=== PATIENT | female | born 1935 | race Caucasian/White ===

== ENCOUNTER → 2017-12-16 12:53 | Outpatient (CLI) | payer MEDICARE, BC, SELFPAY | PROVIDERS: Family Provider Family Medicine; PCP Family Medicine; Visit Provider Surgery Vascular Surgery | DX: I65.23 Occlusion and stenosis of bilateral carotid arteries (principal); I63.9 Cerebral infarction, unspecified | CPT/HCPCS: 93880 ==

== ENCOUNTER 2018-07-04 06:03 | Observation (INO) | payer MEDICARE, BC, SELFPAY ==
[2018-07-04] VITALS (19 sets, daily range): BP systolic 118–223; BP diastolic 68–136; PULSE 58–91; RESP 16–19; TEMP 35.6–37.4; O2SAT 93–100; BMI 23.8; BMI 22.8
--- NOTE | 2018-07-04 06:32 | ED.DCSUM_ITS ---
- ER Visit Summary Date of Service: 07/04/18 Chief Complaint: Abdominal pain History of Present Illness: The patient is a 82 F with history of stroke and atrial flutter who presents for 3 hours of right lower quadrant abdominal pain. The pain started shortly after patient woke up. She states it is severe and in the right lower abdomen. She had associated nausea. She has had one week of urinary frequency. She denies any fever, chest pain, shortness of breath, diarrhea, constipation or other complaints. She has a history of hysterectomy and has had one ovary removed, but she does not know which one. She does have her appendix. She is on aspirin but no anticoagulants. Physical Examination: Vital signs: afebrile, hypertensive, no hypoxia on room air General: well nourished, well developed, appears uncomfortable Skin: warm, moist, no rash, no pallor HEENT: normocephalic and atraumatic; PERRL, EOMI, moist mucous membranes Cardiovascular: irregular rhythm, regular rate with soft systolic murmurs, no peripheral edema, 2+ pulses all distal extremities Respiratory: No increased work of breathing, lungs are clear to auscultation bilaterally, no rales, rhonchi or wheezing Abdominal: Abdomen is soft, tender in the right mid and lower abdomen with hypoactive bowel sounds, no guarding or rebound, no masses MSK: Moves all extremities, no deformities, normal strength Neuro: Awake and alert, oriented ?4. No facial droop, sensation and motor function intact and symmetric Test Results: Abnormal Lab Results 07/04/18 07/04/18 07/04/18 06:15 06:15 06:36 WBC 8.2 RBC 5.68 H Hgb 17.0 H Hct 52.1 H MCV 91.7 MCH 29.9 MCHC 32.6 RDW 14.1 RDW Differential 46.9 H Plt Count 113 L MPV 13.0 H Immature Gran % (Auto) 0.200 Neut % (Auto) 47.4 Lymph % (Auto) 39.9 [place] % (Auto) 7.0 Eos % (Auto) 4.9 Baso % (Auto) 0.6 Absolute Neuts (auto) 3.9 Absolute Lymphs (auto) 3.26 Total Counted Not Reportable Sodium 141 Potassium 4.1 Chloride 106 Carbon Dioxide 26.0 Anion Gap 9 BUN 24 H Creatinine 1.47 H Estim Creat Clear Calc 25.92 Est GFR (MDRD) Af Amer 44 L Est GFR (MDRD) Non-Af 36 L BUN/Creatinine Ratio 16.3 Glucose 171 H Lactic Acid Calcium 9.3 Total Bilirubin 0.70 AST 39 H ALT 33 Alkaline Phosphatase 95 Total Protein 8.0 Albumin 3.7 Globulin 4.3 H Albumin/Globulin Ratio 0.9 Lipase 171 Urine Color Yellow Urine Clarity Clear Urine pH 7.0 Ur Specific [place] 1.015 Urine Protein 15 H Urine Glucose (UA) 100 H Urine Ketones 5 H Urine Occult Blood 10 H Urine Nitrite Negative Urine Bilirubin Negative Urine Urobilinogen Normal Ur Leukocyte Esterase 25 H Urine RBC 0 SEEN Urine WBC 0-5 SEEN Ur Squamous Epith Cells 0-5 SEEN Urine Bacteria 0 SEEN Urine Mucus 0 SEEN 07/04/18 06:45 WBC RBC Hgb Hct MCV MCH MCHC RDW RDW Differential Plt Count MPV Immature Gran % (Auto) Neut % (Auto) Lymph % (Auto) [place] % (Auto) Eos % (Auto) Baso % (Auto) Absolute Neuts (auto) Absolute Lymphs (auto) Total Counted Sodium Potassium Chloride Carbon Dioxide Anion Gap BUN Creatinine Estim Creat Clear Calc Est GFR (MDRD) Af Amer Est GFR (MDRD) Non-Af BUN/Creatinine Ratio Glucose Lactic Acid 2.1 H Calcium Total Bilirubin AST ALT Alkaline Phosphatase Total Protein Albumin Globulin Albumin/Globulin Ratio Lipase Urine Color Urine Clarity Urine pH Ur Specific [place] Urine Protein Urine Glucose (UA) Urine Ketones Urine Occult Blood Urine Nitrite Urine Bilirubin Urine Urobilinogen Ur Leukocyte Esterase Urine RBC Urine WBC Ur Squamous Epith Cells Urine Bacteria Urine Mucus Clinical Impression(s) from Imaging Studies Abdomen/Pelvis CT 07/04/18 06:26 IMPRESSION: There is a 5 mm stone in the distal RIGHT ureter causing mild RIGHT hydronephrosis and hydroureter. There is a 2 mm stone lower pole the LEFT kidney without hydronephrosis. There is cholelithiasis. There is been a hysterectomy. There are infiltrates at the RIGHT lung base. Electronically Signed: Poncho Jose MD at 7:12 EDT , Service support , Medications Given Sodium Chloride () 1,000 mls @ 250 mls/hr IV .Q4H VENITA Last Admin: 07/04/18 06:43 Dose: 250 mls/hr Azithromycin 500 mg/ Dextrose 255 mls @ 250 mls/hr IV X1 ONE Stop: 07/04/18 08:42 Ceftriaxone Sodium (Rocephin) 1 gm in 50 mls @ 100 mls/hr IV X1 ONE Stop: 07/04/18 08:10 Discontinued Medications Labetalol HCl (Trandate) 10 mg IV X1 ONE Stop: 07/04/18 07:42 Morphine Sulfate () 4 mg IV X1 ONE Stop: 07/04/18 06:26 Last Admin: 07/04/18 06:43 Dose: 4 mg Ondansetron HCl (Zofran) 4 mg IV X1 ONE Stop: 07/04/18 06:26 Last Admin: 07/04/18 06:43 Dose: 4 mg Emergency Department Course and Treatment: Patient was given IV fluids, Zofran and morphine for symptomatic relief. Labs were performed and CT of the flank to evaluate for possible kidney stone or other intra-abdominal pathology. Labs showed no leukocytosis. Creatinine was 1.47, which is changed from patient's baseline from 2 years ago. Urine was negative for infection. CT the abdomen and pelvis without contrast showed a 5 mm distal ureteral stone with mild hydronephrosis and hydroureter. A right lower lobe infiltrate was also noted. Patient was asked about any cough, shortness of breath or other symptoms that would be consistent with pneumonia, and she stated that she has felt a gurgling in her chest for the last few days. Patient was hypertensive upon arrival, and after having adequate pain control, she continued to be significantly hypertensive. After 3 significantly elevated blood pressures, patient was given a s small mall dose of IV labetalol. Patient has a history of stroke over one year ago with associated significant hypertension, and one year ago she went cold turkey off of all of her medications including antihypertensives because she was tired of taking medicine. Given the patient has multiple medical issues at this time and lives at home alone, she will be discussed with the hospitalist for admission for observation status for further management of her ureteral colic, uncontrolled hypertension, and right lower lobe pneumonia. Patient was started on Rocephin and azithromycin for community-acquired pneumonia coverage. Treatment Plan: [] Disposition: [] Impression: right 5mm ureteral colic, RLL pneumonia, uncontrolled hypertension This note was generated with Dragon dictation software. It may contain incorrect words, spelling, and punctuation that were not noted in review of the chart prior to signing ED Disposition - Plan for ED Patient: Chief Complaint: Abd Pain Referrals: Larry Cooper MD [Primary Care Provider] -
[2018-07-04 06:38] LABS: Absolute Lymphocyte Count 3.26 X10^3/ul (0.83-4.51); Absolute Neutrophil Count 3.9 X10^3/uL (2.0-7.7); Basophil# 0.05 X10^3/uL; Basophil% 0.6 % (0-1); Eosinophils% 4.9 % (0-5); Hematocrit 52.1 % (37-47); Lymphocyte # 3.26 X10^3/ul (4.0); Lymphocyte % 39.9 % (19-41); Mean Corp Hgb Conc 32.6 g/gl (32-36); Mean Corpuscular Hgb 29.9 pg (27.0-32.0); Mean Corpuscular Volume 91.7 fL (81-99); Monocyte# 0.57 X10^3/uL; Neutrophil # 3.88 X10^3/uL (2.7-7.7); Neutrophil % 47.4 % (47-70); Platelet Count 113 K/mm3 (150-450); RBC Distribution Width CV 14.1 % (11.6-14.6); RBC Distribution Width SD 46.9 fl (35.1-43.9); Red Blood Count 5.68 M/mm3 (4.2-5.4); White Blood Count 8.2 K/mm3 (4.4-11.0)
[2018-07-04 06:39] LABS: POSITIVE COUNT NO; POSITIVE DIFFERENTIAL NO; POSITIVE MORPHOLOGY NO
[2018-07-04 06:39] LABS: Bacteria 0 SEEN /hpf (None Seen); Mucous, Urine 0 SEEN /hpf (<or=2+); Red Blood Cells-Urine 0 SEEN /hpf (0-5)
[2018-07-04] MEDS: Ondansetron 4 MG/2 ML Vial IV (06:43)
[2018-07-04] MEDS: Morphine 4 MG/ML Syringe IV (06:43)
[2018-07-04] MEDS: 0.9% Normal Saline 1,000 ML 250 ML IV (06:43)
[2018-07-04 06:44] LABS: Color, Urine Yellow (Yellow); Glucose, Dipstick 100 mg/dl (Normal); Ketone-Dipstick 5 mg/dl (Negative); Leukocyte Esterase-Dipstick 25 /ul (Negative); Nitrite-Dipstick Negative (Negative); Occult Blood-Urine 10 /ul (Negative); Protein-Dipstick 15 mg/dl (Negative); Specific Gravity, Urine 1.015 (1.002-1.030); Urine Bilirubin Dipstick Negative (Negative); Urine Clarity Clear (Clear); Urine Urobilinogen Normal (Normal)
[2018-07-04 06:48] LABS: ALB/GLOB Ratio 0.9 RATIO (0.9-2.4); AST(SGOT) 39 U/L (15-37); Alanine Aminotransfer ALT/SGPT 33 U/L (13-56); Albumin, Serum 3.7 g/dL (3.2-5.0); Alkaline Phosphatase 95 U/L (45-117); Anion Gap 9 (5-15); BUN 24 mg/dL (7-18); BUN/Creat Ratio 16.3 RATIO (10-20); Calcium,Total 9.3 mg/dL (8.5-10.1); Chloride 106 mmol/L (98-107); Creatinine, Serum 1.47 mg/dL (0.55-1.02); EST Glomerular Filtration Rate 36 mL/min (>60); Est Glom Filt Rate - Afr Amer 44 mL/min (>60); Estimated Creatinine Clearance 25.92 ml/min; Globulin 4.3 g/dL (2.2-4.2); Glucose 171 mg/dL (74-106); Lipase 171 U/L (73-393); Potassium 4.1 mmol/L (3.5-5.1); Sodium Level 141 mmol/L (136-145)
[2018-07-04 06:54] LABS: Squamous Epithelial Cells - UA 0-5 SEEN /hpf (5-10); White Blood Cells 0-5 SEEN /hpf (0-5)
[2018-07-04 07:18] LABS: Lactic Acid 2.1 mmol/L (0.4-2.0)
--- NOTE | 2018-07-04 07:19 | ED.RN ---
PER LAB LACTIC ACID 2.1, DR GANDHI AWARE.
--- NOTE | 2018-07-04 07:50 | PCM.HP.STD ---
Problem List (1) Pneumonia Status: Acute (2) Renal colic on right side Status: Acute (3) Kidney stone on right side Status: Acute (4) Atrial flutter Status: Acute Qualifiers: Atrial flutter type: typical Qualified Code(s): I48.3 - Typical atrial flutter (5) Carotid stenosis Status: Chronic Qualifiers: Laterality: right Qualified Code(s): I65.21 - Occlusion and stenosis of right carotid artery (6) Hypertension, accelerated Status: Chronic (7) Stroke/cerebrovascular accident Status: Chronic Qualifiers: CVA mechanism: unspecified Qualified Code(s): I63.9 - Cerebral infarction, unspecified History of Present Illness Date of Admission: 07/04/18 Chief Complaint: Right flank pain The patient is a 82 year old F with past medical history significant for hypertension, previous history of CVA with no residual effect who presented with right flank pain. Patient symptoms started in the middle of the night. Pain was described as colicky radiating to her groin. She also did complain of some shortness of breath associated with nonproductive cough as well as intermittent fever and chills. Imaging studies obtained in the ED demonstrated There is a 5 mm stone in the distal RIGHT ureter causing mild RIGHT hydronephrosis and hydroureter. She was also found to have infiltrate involving the right base of the lung. She was medicated with pain meds antibiotics initiated per protocol and admitted to a monitored bed. She was also found to have a markedly elevated systolic blood pressure > 200. Past Medical History Past Medical History (Chronic Problems): Chronic Problems Hypertension, accelerated (Chronic) Carotid stenosis (Chronic) Stroke/cerebrovascular accident (Chronic) Allergies No Known Allergies Allergy (Verified 07/04/18 06:07) Home Medications: Ambulatory Orders Medication Instructions Recorded Aspirin 81 mg PO DAILY 07/04/18 Surgical History: hysterectomy Psychiatric History: No pertinent psych hx SCALER PACKER History: No pertinent SCALER PACKER history Smoking Status: Never smoker - *Family History Maternal History Items: - - No stroke Paternal History Items: - - No stroke Review of Systems Constitutional: Reports: Chills, Fever HEENT: Denies: Head Aches, Sinus Congestion, Sinus Drainage Respiratory: Reports: Cough Gastrointestinal: Reports: Abdominal Pain Genitourinary: Denies: Dysuria, Frequency, Hematuria, Urgency Musculoskeletal: Denies: Joint Pain, Joint Tenderness Skin: Denies: Rash Neurological: Denies: Focal weakness, Numbness, Tingling Psychiatric: Denies: Homicidal Ideations, Suicidal Ideations Hematologic/ Lymphatic: Denies: Easy Bruising, Easy Bleeding VTE Information - Inpt Only VTE Present on Admission: No VTE Mechan Device Prophylaxis: Knee High GREGG Hose VTE Pharm Prophylaxis ordered?: Yes Patient Problems: Active and Suspected Problems Pneumonia (Acute) Renal colic on right side (Acute) Kidney stone on right side (Acute) Objective: GENERAL: in some discomfort HEENT: Clear conjunctiva, NECK; supple, normal thyroid, CHEST: Diminished to auscultation bilaterally, HEART: Regular S1 S2, no audible murmurs ABDOMEN: soft, non-tender, normoactive bowel sounds, RECTAL: deferred EXTREMITIES: No edema, no clubbing, no cyanosis. 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 SKIN: No Rash - Physical Exam Vital Signs Temp Pulse Resp BP Pulse Ox 96.0 F L 58 L 17 209/94 H 96 07/04/18 06:04 07/04/18 07:03 07/04/18 07:03 07/04/18 07:03 07/04/18 07:03 Oxygen Delivery Method Room Air Weight: 62.9 kg Body Mass Index (BMI) 23.8 Finger Stick Blood Glucose 192 Laboratory Tests Past 24 Hrs 07/04/18 07/04/18 07/04/18 06:15 06:15 06:36 WBC 8.2 RBC 5.68 H Hgb 17.0 H Hct 52.1 H MCV 91.7 MCH 29.9 MCHC 32.6 RDW 14.1 RDW Differential 46.9 H Plt Count 113 L MPV 13.0 H Immature Gran % (Auto) 0.200 Neut % (Auto) 47.4 Lymph % (Auto) 39.9 [place] % (Auto) 7.0 Eos % (Auto) 4.9 Baso % (Auto) 0.6 Absolute Neuts (auto) 3.9 Absolute Lymphs (auto) 3.26 Total Counted Not Reportable Sodium 141 Potassium 4.1 Chloride 106 Carbon Dioxide 26.0 Anion Gap 9 BUN 24 H Creatinine 1.47 H Estim Creat Clear Calc 25.92 Est GFR (MDRD) Af Amer 44 L Est GFR (MDRD) Non-Af 36 L BUN/Creatinine Ratio 16.3 Glucose 171 H Lactic Acid Calcium 9.3 Total Bilirubin 0.70 AST 39 H ALT 33 Alkaline Phosphatase 95 Total Protein 8.0 Albumin 3.7 Globulin 4.3 H Albumin/Globulin Ratio 0.9 Lipase 171 Urine Color Yellow Urine Clarity Clear Urine pH 7.0 Ur Specific [place] 1.015 Urine Protein 15 H Urine Glucose (UA) 100 H Urine Ketones 5 H Urine Occult Blood 10 H Urine Nitrite Negative Urine Bilirubin Negative Urine Urobilinogen Normal Ur Leukocyte Esterase 25 H Urine RBC 0 SEEN Urine WBC 0-5 SEEN Ur Squamous Epith Cells 0-5 SEEN Urine Bacteria 0 SEEN Urine Mucus 0 SEEN 07/04/18 06:45 WBC RBC Hgb Hct MCV MCH MCHC RDW RDW Differential Plt Count MPV Immature Gran % (Auto) Neut % (Auto) Lymph % (Auto) [place] % (Auto) Eos % (Auto) Baso % (Auto) Absolute Neuts (auto) Absolute Lymphs (auto) Total Counted Sodium Potassium Chloride Carbon Dioxide Anion Gap BUN Creatinine Estim Creat Clear Calc Est GFR (MDRD) Af Amer Est GFR (MDRD) Non-Af BUN/Creatinine Ratio Glucose Lactic Acid 2.1 H Calcium Total Bilirubin AST ALT Alkaline Phosphatase Total Protein Albumin Globulin Albumin/Globulin Ratio Lipase Urine Color Urine Clarity Urine pH Ur Specific [place] Urine Protein Urine Glucose (UA) Urine Ketones Urine Occult Blood Urine Nitrite Urine Bilirubin Urine Urobilinogen Ur Leukocyte Esterase Urine RBC Urine WBC Ur Squamous Epith Cells Urine Bacteria Urine Mucus Assessment/Plan All Active Problems Pneumonia (Acute) Renal colic on right side (Acute) Kidney stone on right side (Acute) Atrial flutter (Acute) Patient is an 82-year-old lady presented with flank pain found to have kidney stones in addition to pneumonia 1. Right flank pain secondary to a 5 mm stone in the distal RIGHT ureter causing mild RIGHT hydronephrosis and hydroureter.. Patient has been admitted to a monitored bed for symptomatic management as well as consultation placed to urology 2. Pneumonia: Suspected to be secondary to streptococci pneumonia. Blood and sputum cultures sent. Patient placed on Rocephin and Zithromax. Also placed on oxygen titrated to keep also is greater than 92 2. Acute hypertensive crisis. Patient systolic blood pressure greater than 200 on admission initiated amlodipine scheduled 10 mg daily in addition to as needed hydralazine 4. Previous history of CVA a year prior to admission with no residual effect 5. Cholelithiasis asymptomatic 6. DVT prophylaxis SC Lovenox Advance planning did discuss patient's CODE STATUS with her ; did discuss the various modalities patient wishes to remain full code at this point. Time spent on discussion 17 minutes Code Visit Inpatient E&M: 61041 Subs Hosp L3 Procedures: 31246 Advncd Care Plan 30 Min
[2018-07-04] MEDS: Ceftriaxone 1 GM/50 ML BAG IV (08:30)
[2018-07-04] MEDS: 0.9% Normal Saline 1,000 ML 150 ML IV ×3 (10:21→21:45)
[2018-07-04] MEDS: 0.9% NaCl Peripheral Flush Adult/Peds IV (10:22)
[2018-07-04] MEDS: amLODIPine 10 MG Tablet PO (10:25)
[2018-07-04 10:50] LABS: Reflex Lactate? Y
[2018-07-04 12:07] LABS: Lactic Acid 2.5 mmol/L (0.4-2.0)
--- NOTE | 2018-07-04 12:21 | PCM.CONS.U ---
Reason for Consult Date of Consultation: 07/04/18 Reason for Consultation: Obstructing stone in the distal right ureter History of Present Illness: The patient is a 82 year old female who presented to the hospital with severe pain in the right side, she has a stone in the distal right ureter causing pain and obstruction and hydronephrosis. Taken the patient today to surgery to extract the stone Past Medical History Past Medical History (Chronic Problems): Chronic Problems Hypertension, accelerated (Chronic) Carotid stenosis (Chronic) Stroke/cerebrovascular accident (Chronic) Allergies adhesive Adverse Reaction (Verified 07/04/18 08:59) Rash Home Medications: Ambulatory Orders Medication Instructions Recorded Aspirin 81 mg PO DAILY 07/04/18 Surgical History: hysterectomy Psychiatric History: No pertinent psych hx ACUTE SPECIALIST History: No pertinent ACUTE SPECIALIST history Smoking Status: Never smoker - *Family History Maternal History Items: - - No stroke Paternal History Items: - - No stroke Review of Systems Constitutional: Denies: Chills, Fever, Weight Change HEENT: Denies: Head Aches, Sinus Congestion, Sinus Drainage Cardiovascular: Denies: Chest Pain, Palpitations Respiratory: Denies: Cough, Shortness of breath at rest, Sputum production Gastrointestinal: Reports: Abdominal Pain. Denies: Nausea, Vomiting Genitourinary: Denies: Dysuria Musculoskeletal: Denies: Joint Pain, Joint Tenderness Skin: Denies: Rash, Wounds Neurological: Denies: Numbness, Tingling, Focal weakness Psychiatric: Denies: Anxiety, Depression, Homicidal Ideations, Suicidal Ideations Hematologic/ Lymphatic: Denies: Easy Bruising, Easy Bleeding Physical Exam - Physical Exam Vital Signs Temp 97.5 F L 07/04/18 08:55 Pulse 73 07/04/18 11:25 Resp 17 07/04/18 08:55 BP 160/116 H 07/04/18 11:25 Pulse Ox 96 07/04/18 08:55 Intake & Output 07/02/18 07/03/18 07/04/18 23:59 23:59 23:59 Weight: 60.3 kg General: Alert, Oriented x3 HEENT: Atraumatic Oral: Moist Mucosa Neck: Supple Cardiovascular: Regular rate Abdomen: Soft Rectal: Exam deferred Extremities: No clubbing, No cyanosis, No edema Skin: No rashes Musculoskeletal: No Tenderness to Palpation of Joints or Extremities Lymphatic: No Cervical, Supraclavicular, or Inguinal Adenopathy Laboratory Tests Past 24 Hrs 07/04/18 11:24 Lactic Acid 2.5 H Assessment/Plan All Active Problems Pneumonia (Acute) Renal colic on right side (Acute) Kidney stone on right side (Acute) Atrial flutter (Acute) 82-year-old female who presented to the hospital with obstructing stone. N.p.o. today for surgery plan for ureteroscopy extraction of stone no stent.
--- NOTE | 2018-07-04 12:23 | PCM.OPRPT ---
Report of Operation Date of Procedure: 07/04/18 Pre-Operative Diagnosis: Right ureteral calculi causing obstruction and pain Post-Operative Diagnosis: The same Surgery/Procedure Performed:: Cystoscopy, right ureteroscopy, balloon dilation of the right ureter, basket extraction of stone. No stent Description of Surgical Findings:: 82-year-old female was taken back to the operating room after smooth induction of anesthesia she was placed supine on the table in dorsal lithotomy position, the urethra and vaginal area were prepped and draped in usual sterile fashion, I went into the bladder with a 21 [place] rigid cystourethroscope, the entire length the urethra is normal, the bladder was normal, no tumors or stones seen within the bladder, left to right ureteral orifice normal position trigone normal, I then cannulated the right ureteral orifice with a wire could feel the stone at the wire then advanced a wire all the way to the right kidney, then over the wire I used a 12 [place] 10 cm balloon dilator and balloon dilated the distal ureter for about 2 minutes. I then left the wire in place and next the wire went in with a SlimLine rigid ureteroscope was able to get into the distal ureter quite easily I then encountered the stone I used a tipless Sugiura basket basketed the stone and gently pulled out the ureter and out the bladder. The stone was then handed off to the nurse, the wire was removed patient's bladder was emptied and she is taken back to PACU in good condition. Type of Anesthesia:: General Drains: none - Admit VTE Documentation VTE Present on Admission: No VTE Mechan Device Prophylaxis: SCD's VTE Pharm Prophylaxis ordered?: No Reason prophylaxis not ordered:: Treatment Not Indicated
[2018-07-04] MEDS: Enoxaparin 30 MG/0.3 ML Syringe SC (13:35)
[2018-07-04] MEDS: guaiFENesin 1,200 MG Tablet 1200 MG PO ×2 (13:35→21:45)
[2018-07-04] MEDS: Famotidine 20 MG Tablet PO (13:35)
[2018-07-04] MEDS: Aspirin 81 MG TAB.CHEW PO (13:36)
--- NOTE | 2018-07-04 16:01 | CASEMGMT ---
This RN MADISON to room with WU form at this time, explanation done and pt voices understanding. Pt signed form at this time. Pt voices no further questions/concerns/needs at this time. Original to chart and copy to pt. Trevor MIXON CM
[2018-07-04 19:31] LABS: Color, Urine Red (Yellow); Glucose, Dipstick 100 mg/dl (Normal); Ketone-Dipstick 5 mg/dl (Negative); Leukocyte Esterase-Dipstick 100 /ul (Negative); Nitrite-Dipstick Negative (Negative); Occult Blood-Urine 250 /ul (Negative); Protein-Dipstick 100 mg/dl (Negative); Urine Bilirubin Dipstick Negative (Negative); Urine Clarity Turbid (Clear); Urine Urobilinogen Normal (Normal); Urine pH 6.5 (5.0 - 8.0)
[2018-07-04] MEDS: MELATONIN 3 MG TABLET PO (21:45)
[2018-07-04] MEDS: Morphine 2 MG/ML Syringe IV (21:50)
[2018-07-05 02:30] VITALS: BP 143/90; PULSE 83; RESP 16; TEMP 36.6; O2SAT 96
[2018-07-05 03:23] VITALS: PULSE 84
[2018-07-05] MEDS: 0.9% Normal Saline 1,000 ML 150 ML IV (04:10)
[2018-07-05 05:33] LABS: Hematocrit 48.8 % (37-47); Hemoglobin 15.9 g/dl (12.0-15.0); Mean Corp Hgb Conc 32.6 g/gl (32-36); Mean Corpuscular Hgb 30.4 pg (27.0-32.0); Mean Corpuscular Volume 93.3 fL (81-99); Mean Platelet Vol. 12.2 fl (6.2-12.0); Platelet Count 127 K/mm3 (150-450); RBC Distribution Width CV 14.5 % (11.6-14.6); RBC Distribution Width SD 49.1 fl (35.1-43.9); Red Blood Count 5.23 M/mm3 (4.2-5.4); White Blood Count 12.1 K/mm3 (4.4-11.0)
[2018-07-05 05:41] LABS: Scan Indicated on CBC? Y/N NO
[2018-07-05 05:51] LABS: Anion Gap 12 (5-15); BUN 20 mg/dL (7-18); BUN/Creat Ratio 14.9 RATIO (10-20); Calcium,Total 8.8 mg/dL (8.5-10.1); Chloride 106 mmol/L (98-107); Creatinine, Serum 1.34 mg/dL (0.55-1.02); EST Glomerular Filtration Rate 40 mL/min (>60); Est Glom Filt Rate - Afr Amer 49 mL/min (>60); Estimated Creatinine Clearance 28.43 ml/min; Glucose 128 mg/dL (74-106); Magnesium 1.9 mg/dL (1.6-2.6); Potassium 4.8 mmol/L (3.5-5.1); Sodium Level 139 mmol/L (136-145)
[2018-07-05 06:24] VITALS: BP 183/101; PULSE 73; RESP 16; TEMP 36.8; O2SAT 94
[2018-07-05 07:08] VITALS: PULSE 72
[2018-07-05 08:52] VITALS: BP 143/64; PULSE 79; RESP 18; TEMP 36.9; O2SAT 99
--- NOTE | 2018-07-05 10:42 | PCM.DC ---
- Discharge Diagnoses Current Active Problems: Current Active and Chronic Problems Pneumonia (Acute) Renal colic on right side (Acute) Kidney stone on right side (Acute) You will use the following diet at home:: No restrictions Allergies/Adverse Reactions: Allergies adhesive Adverse Reaction (Verified 07/04/18 08:59) Rash Medications to take at Discharge Aspirin 81 mg PO DAILY 07/04/18 Amlodipine [Norvasc] 10 mg PO DAILY #60 tab 07/05/18 Azithromycin [Zithromax] 500 mg PO DAILY #3 tab 07/05/18 Cefdinir 300 mg PO BID #10 cap 07/05/18 The following prescriptions were given: Amlodipine [Norvasc] 10 mg PO DAILY #60 tab Azithromycin [Zithromax] 500 mg PO DAILY #3 tab Cefdinir 300 mg PO BID #10 cap Primary Care Physician: Larry Cooper MD [Primary Care Provider] - Please follow up with your Primary Care Physician in: in 5-7 days Test Results: Test results from this visit will be discussed in further detail at your follow-up appointment, if applicable. Please Follow Up With: Oleg Rivera MD When: in 1-2 weeks Proposed Discharge Date: 07/05/18
[2018-07-05] MEDS: guaiFENesin 1,200 MG Tablet 1200 MG PO (11:01)
[2018-07-05] MEDS: Famotidine 20 MG Tablet PO (11:02)
[2018-07-05] MEDS: Aspirin 81 MG TAB.CHEW PO (11:02)
[2018-07-05] MEDS: amLODIPine 10 MG Tablet PO (11:02)
--- NOTE | 2018-07-05 12:19 | PCM.DC.SUM ---
Discharge Date and Diagnosis - Problem List Patient Problems: Active and Suspected Problems Pneumonia (Acute) Renal colic on right side (Acute) Kidney stone on right side (Acute) Date of Admission: 07/04/18 Date of Discharge: 07/05/18 - Primary Discharge Diagnosis Active and Suspected Problems Pneumonia (Acute) Renal colic on right side (Acute) Kidney stone on right side (Acute) - Secondary Discharge Diagnosis Chronic Problems Hypertension, accelerated (Chronic) Carotid stenosis (Chronic) Stroke/cerebrovascular accident (Chronic) Hospital Course and Treatment Imaging Results: Clinical Impression(s) from Imaging Studies Abdomen/Pelvis CT 07/04/18 06:26 IMPRESSION: There is a 5 mm stone in the distal RIGHT ureter causing mild RIGHT hydronephrosis and hydroureter. There is a 2 mm stone lower pole the LEFT kidney without hydronephrosis. There is cholelithiasis. There is been a hysterectomy. There are infiltrates at the RIGHT lung base. Electronically Signed: Poncho Jose MD at 7:12 EDT , Service support , Operations: None Summary of Care Provided: Patient is an 82-year-old lady presented with flank pain found to have kidney stones in addition to pneumonia 1. Right flank pain secondary to a 5 mm stone in the distal RIGHT ureter causing mild RIGHT hydronephrosis and hydroureter.. Patient has been admitted to a monitored bed for symptomatic management as well as consultation placed to urology. Patient was seen by Dr. Rivera who did perform Cystoscopy, right ureteroscopy, balloon dilation of the right ureter, basket extraction of stone; No stent on 07/04/2018 2. Pneumonia: Suspected to be secondary to streptococci pneumonia. Blood and sputum cultures sent. Patient placed on Rocephin and Zithromax. Also placed on oxygen titrated to keep also is greater than 92 she was discharged home on Felix as well as cefdinir 2. Acute hypertensive crisis. Patient systolic blood pressure greater than 200 on admission initiated amlodipine scheduled 10 mg daily in addition to as needed hydralazine prescription was written for amlodipine on discharge 4. Previous history of CVA a year prior to admission with no residual effect patient is on aspirin did continue 5. Cholelithiasis asymptomatic 6. DVT prophylaxis SC Lovenox Discharge Diet: No Restrictions Home Medications: Medications to take at Discharge Aspirin 81 mg PO DAILY 07/04/18 Amlodipine [Norvasc] 10 mg PO DAILY #60 tab 07/05/18 Azithromycin [Zithromax] 500 mg PO DAILY #3 tab 07/05/18 Cefdinir 300 mg PO BID #10 cap 07/05/18 Following Prescrptions Were Given to Patient: Amlodipine [Norvasc] 10 mg PO DAILY #60 tab Azithromycin [Zithromax] 500 mg PO DAILY #3 tab Cefdinir 300 mg PO BID #10 cap Primary Care Physician: Larry Cooper MD [Primary Care Provider] - Please follow up with your Primary Care Physician in: in 5-7 days Please Follow Up With: Oleg Rivera MD When: in 1-2 weeks Disposition: Home Minutes spent on discharge:: 35 Patient Condition:: Stable Medical Necessity - Tobacco Use Smoking Status: Never smoker Meaningful Use Info Meaningful Use Diagnoses (Choose all that apply): None applicable Code Visit Inpatient E&M: 45942 Disch Hosp
[2018-07-05 13:00] VITALS: BP 124/93
--- NOTE | 2018-07-05 13:00 | CALC_PTH ---
PATIENT: VENTURA FARIA LOC: [facility] U#:[id number] AGE/SX: 82/F ROOM: [facility] RE07/04/[address]: Dr. Miguelangel Dean MD : [id number] BED: 1 DIS: 07/05/2018 SPEC #: [id number] RECD: 07/05/18 13:52 STATUS: KRISTI REQ #: [id number] TALHA: 07/05/18 13:[address]: Oleg Rivera DEPT: SURGICAL PATHOLOGY RECD BY: Bobo España ENTERED: 07/05/18 13:53 SP TYPE: Calculi OTHR DR: MD Dr. Oleg Quiñonez MD Dr. Mark Elderbrock, MD Tissues: CALCULI Procedures: Surgery Specimen Level I Comments: @ Ordering doctor for CODY edited from to @ by RGOOD at 07/06/18 0759 @ Submitting doctor edited from to @ by RGOOD at 07/06/18 0759 HEADER OPERATION: Cysto, ureteroscopy, balloon dilation right ureter, basket extraction PRE-OP DIAGNOSIS: Right flank pain, right ureteral calculus TISSUE SUBMITTED: Right ureteral calculus GROSS DIAGNOSIS Right ureteral calculus, removal: Unremarkable calculus (gross diagnosis only). AM:milady 07/06/18 COMMENT If chemical analysis is requested on this specimen, please notify the laboratory. GROSS DESCRIPTION Received in fixative is one container labeled with the patient's name and designated right ureteral calculus. The specimen consists of a single irregular dark agustin calculus measuring 0.4 x 0.3 x 0.2 cm. The calculus is submitted in its entirety for chemical stone analysis. / AM:milady 07/05/18 CPT: 16673
== END 2018-07-05 10:43 | disposition home or self-care (01) ==
LOC: ED 07:17 → PCU 08:55
PROVIDERS: Urology; Admitting Provider Internal Medicine; Emergency Provider Emergency Medicine; Family Provider Family Medicine; PCP Family Medicine; Visit Provider Internal Medicine
PROC: 0TJ98ZZ Inspection of Ureter, Via Natural or Artificial Opening Endoscopic (ICD-10-PCS; CPT 52352; principal; 2018-07-04 12:50)
DX: N13.2 Hydronephrosis with renal and ureteral calculous obstruction (principal); I10 Essential (primary) hypertension; Z79.82 Long term (current) use of aspirin; I48.92 Unspecified atrial flutter; Z86.73 Personal history of transient ischemic attack (TIA), and cerebral infarction without residual deficits; I16.9 Hypertensive crisis, unspecified; J18.9 Pneumonia, unspecified organism; K80.20 Calculus of gallbladder without cholecystitis without obstruction; I48.2 Chronic atrial fibrillation
CPT/HCPCS: 00918; 52320; 36415; 74176; 80048; 80053; 81001; 81002; 83605; 83690; 83735; 85025; 85027; 87040; 87449; 88300; 93005; 96361; 96365; 96367; 96372; 96375; 96376; 97802; 99218; 99283; J7030; A4216; C1769; G0378; J2405

== ENCOUNTER 2018-07-06 07:13 | Emergency (ER) | payer MEDICARE, BC, SELFPAY ==
[2018-07-06 07:14] VITALS: BP 157/123; PULSE 78; RESP 20; TEMP 37.2; O2SAT 96; BMI 22.3
[2018-07-06] MEDS: 0.9% Normal Saline 1,000 ML 150 ML IV (07:57)
[2018-07-06 07:59] LABS: Absolute Lymphocyte Count 1.28 X10^3/ul (0.83-4.51); Absolute Neutrophil Count 9.2 X10^3/uL (2.0-7.7); Basophil# 0.03 X10^3/uL; Basophil% 0.3 % (0-1); Eosinophil# 0.04 X10^3/uL; Eosinophils% 0.3 % (0-5); Hematocrit 46.4 % (37-47); Hemoglobin 15.4 g/dl (12.0-15.0); Lymphocyte # 1.28 X10^3/ul (4.0); Lymphocyte % 11.2 % (19-41); Mean Corp Hgb Conc 33.2 g/gl (32-36); Mean Corpuscular Hgb 30.6 pg (27.0-32.0); Mean Corpuscular Volume 92.1 fL (81-99); Monocyte# 0.91 X10^3/uL; Neutrophil # 9.17 X10^3/uL (2.7-7.7); Neutrophil % 80.1 % (47-70); Platelet Count 127 K/mm3 (150-450); RBC Distribution Width CV 14.2 % (11.6-14.6); RBC Distribution Width SD 47.9 fl (35.1-43.9); Red Blood Count 5.04 M/mm3 (4.2-5.4); White Blood Count 11.4 K/mm3 (4.4-11.0)
[2018-07-06 08:01] LABS: POSITIVE COUNT NO; POSITIVE DIFFERENTIAL NO; POSITIVE MORPHOLOGY NO
[2018-07-06 08:03] LABS: Color, Urine Yellow (Yellow); Glucose, Dipstick 100 mg/dl (Normal); Ketone-Dipstick Negative (Negative); Leukocyte Esterase-Dipstick 25 /ul (Negative); Nitrite-Dipstick Negative (Negative); Occult Blood-Urine 250 /ul (Negative); Protein-Dipstick 30 mg/dl (Negative); Specific Gravity, Urine 1.015 (1.002-1.030); Urine Bilirubin Dipstick Negative (Negative); Urine Clarity Sl. Cloudy (Clear); Urine Urobilinogen Normal (Normal)
[2018-07-06 08:11] LABS: Red Blood Cells-Urine > 100 SEEN /hpf (0-5); White Blood Cells 0-5 SEEN /hpf (0-5)
[2018-07-06 08:12] LABS: Bacteria RARE /hpf (None Seen); Mucous, Urine 1+ /hpf (<or=2+); Squamous Epithelial Cells - UA 0-5 SEEN /hpf (5-10)
[2018-07-06 08:13] LABS: Anion Gap 12 (5-15); BUN 23 mg/dL (7-18); BUN/Creat Ratio 18.5 RATIO (10-20); Calcium,Total 9.1 mg/dL (8.5-10.1); Chloride 103 mmol/L (98-107); Creatinine, Serum 1.24 mg/dL (0.55-1.02); EST Glomerular Filtration Rate 44 mL/min (>60); Est Glom Filt Rate - Afr Amer 53 mL/min (>60); Estimated Creatinine Clearance 30.73 ml/min; Glucose 116 mg/dL (74-106); Potassium 3.4 mmol/L (3.5-5.1); Sodium Level 141 mmol/L (136-145)
--- NOTE | 2018-07-06 08:57 | ED.VISSUMM ---
- ER Visit Summary Date of Service: 07/06/18 Chief Complaint: [Possible allergic reaction] History of Present Illness: The patient is a 82 F [presents the emergency department with complaint of pain in her right flank. Patient states that she was recently admitted to the hospital for a right-sided kidney stone and pneumonia. Patient was discharged home yesterday. Patient states she woke up around 4:45 AM with severe pain in her right lower abdomen and back that was worse than when she first was diagnosed with kidney stone. Patient subsequently felt nauseated and had some dry heaves. Patient became diaphoretic and sweaty. Patient states that she then took her morning medications including Ceftin near and Zithromax as well as Norvasc. Patient continued to have a lot of discomfort and cramping and thought that may be the medications were making her feel bad. Patient denies any fevers. On arrival the emergency department her pain is much improved and rates it a 4 5 out of 10. Patient describes it is just mild cramping.] Physical Examination: [HEENT-PERRLA, EOMI. Cranial nerves II through XII grossly intact. TMs clear. Mucous membranes moist. No adenopathy. Cardiovascular-regular rate and rhythm without murmur or ectopy Lungs-clear to auscultation, chest wall stable without crepitus or subcu emphysema Abdomen-normoactive bowel sounds, soft. Patient does have some tenderness over the right lower quadrant with some guarding. There is no rebound, rigidity, or perineal signs. Patient does have some CVA tenderness on the right. Extremities-intact ?4, normal range of motion, normal pulses, atraumatic] Test Results: [CBC with differential obtained showing 11.4, hemoglobin 15, hematocrit 46, platelets 127. Chemistries unremarkable. Urinalysis was positive for greater than 100 RBCs only 25 leukoesterase 0-[address] of the flank showed a right hydro-nephrosis and hydroureter without evidence of previously seen 5 mm stone.] Emergency Department Course and Treatment: [Patient did not want any pain medications in the department. I did discuss case with Dr. Rivera will follow patient up in the office. At this point I do not feel patient's had any type of allergic reaction and I suspect patient had a reaction to the pain that she was having possibly a vasovagal type reaction.] Treatment Plan: [Discharged home with follow-up with urology] Disposition: [Discharged in stable condition] Impression: [Right flank pain status post recently passed kidney stone and instrumentation] This note was generated with [employer] dictation software. It may contain incorrect words, spelling, and punctuation that were not noted in review of the chart prior to signing ED Disposition - Plan for ED Patient: Chief Complaint: Allergic Reaction Referrals: Larry Cooper MD [Primary Care Provider] -
--- NOTE | 2018-07-06 09:04 | ED.DEP ---
ED Disposition - Plan for ED Patient: Chief Complaint: Allergic Reaction Instructions: ED Stone Renal Passed Referrals: Larry Cooper MD [Primary Care Provider] - Oleg Rievra MD [STAFF PHYSICIAN] - 3-5 Days
[2018-07-06 09:08] VITALS: BP 118/62; PULSE 57; RESP 16; O2SAT 98
== END 2018-07-06 09:09 | disposition home or self-care (01) ==
PROVIDERS: Emergency Provider Emergency Medicine; Family Provider Family Medicine; PCP Family Medicine
DX: R10.9 Unspecified abdominal pain (principal); N13.30 Unspecified hydronephrosis; I10 Essential (primary) hypertension; Z86.73 Personal history of transient ischemic attack (TIA), and cerebral infarction without residual deficits; Z87.442 Personal history of urinary calculi
CPT/HCPCS: 74176; 80048; 81001; 85025; 96360; 96361; 99284; J7030; A4216

== ENCOUNTER 2018-07-13 18:54 | Inpatient (IN) | payer MEDICARE, BC, SELFPAY ==
[2018-07-13] VITALS (7 sets, daily range): BP systolic 145–168; BP diastolic 79–101; PULSE 53–103; RESP 16–20; TEMP 36.6–36.9; O2SAT 91–100; BMI 20.5; BMI 22.1
--- NOTE | 2018-07-13 20:24 | EKG12_ITS ---
Test Reason : STROKE Blood Pressure : / mmHG Vent. Rate : 095 BPM Atrial Rate : 110 BPM P-R Int : 000 ms QRS Dur : 098 ms QT Int : 360 ms P-R-T Axes : 000 004 001 degrees QTc Int : 452 ms Atrial fibrillation Septal infarct , age undetermined Abnormal ECG Confirmed by INDIRA ROWE ([id number]), publishing editor MARCE GABRIEL ([id number] on 07/19/2018 1:39:49 PM Referred By: YAMILEX Confirmed By:INDIRA ROWE
--- NOTE | 2018-07-13 20:31 | ED.VISSUMM ---
- ER Visit Summary Date of Service: 07/13/18 Chief Complaint: Weakness History of Present Illness: The patient is a 82 F presents with neighbors for a weakness and fall ?2 today. Patient states she fell at noon today with no injuries. States there is no weakness on either side. States she fell again at 5 PM. Neighbors checked on her around 630, helped her up noted weakness on the left arm and leg. Patient denies any speech changes. She had a stroke a year ago. She is on baby aspirin. There is no deficits from that stroke. Denies any injury from the fall. Patient states she is hospitalized little over week ago was placed on amlodipine and would have tremors and weakness after taking this medications around 2 hours. Saw her PCP on follow-up is told to take it for a few more days. States she has been feeling like this since. She is admitted for pneumonia and kidney stone. Records reviewed, no she hasa flutter history. Physical Examination: General: Alert and oriented ?3, no acute distress HEENT: Normocephalic, atraumatic. Moist mucosa membranes. Slight lip droop on the left. Neck: supple, nontender. Cardiovascular: Regular rate and irregular rhythm, no murmurs Respiratory: Normal breath sounds, symmetric, no distress Abdomen: Soft, nontender, nondistended Extremities: Nontender, no edema, pulses intact ?4 Neuro: NIH is a 5 for left lip droop, left arm weakness dropping to the bed, left leg paresthesia. Test Results: EKG: Atrial fibrillation rate of 95. No ST or T-wave changes. CT head: Discussed radiology negative for any acute process. Labs were stable. Chest x-ray negative. Emergency Department Course and Treatment: Unclear on onset of time with patient reporting no weakness at the initial time of noon, she did have a deficit of 5 on NIH, I did activate the stroke team. However during discussion with patient risk of head bleeds secondary NINDS trial were discussed, she was alert and oriented 3, she states she did not want the risks. She states her risk is higher. She understands possibility of permanent deficit. Workup is negative. We NIH was still a 5. Granddaughter was present along with the neighbors who understood this. When I discussed CODE STATUS, patient still is a full code stating if multiple doctors agreed needing CPR and intubation she would like this. When discussion with her atrial fibrillation no anticoagulation medicines, she states a year ago had A. fib was placed on medication that was too expensive costing $400 a month. I discussed with her there is the possibility of warfarin with his generic medications, states this is a possibility. I did speak with on-call neurologist, Dr. Joya, discussed patient's wishes, she was admitted to PCU for further management. Spoke with hospitalist Dr. Prabhakar who will admit to PCU. Treatment Plan: [] Disposition: Admission Impression: 1. Acute CVA This note was generated with [employer]ab dictation software. It may contain incorrect words, spelling, and punctuation that were not noted in review of the chart prior to signing ED Disposition - Plan for ED Patient: Disposition: Acute Care [facility] Chief Complaint: Fall Diagnosis: Acute CVA (cerebrovascular accident) Referrals: Larry Cooper MD [Primary Care Provider] -
[2018-07-13 20:36] LABS: Bedside Glucose 113 mg/dL (70-110)
[2018-07-13 20:45] LABS: Prothrombin Time (Protime)PT. 13.3 SECONDS (11.7-14.9)
[2018-07-13 20:46] LABS: Absolute Lymphocyte Count 1.58 X10^3/ul (0.83-4.51); Absolute Neutrophil Count 7.3 X10^3/uL (2.0-7.7); Basophil# 0.04 X10^3/uL; Basophil% 0.4 % (0-1); Hematocrit 48.4 % (37-47); Hemoglobin 17.3 g/dl (12.0-15.0); Lymphocyte # 1.58 X10^3/ul (4.0); Lymphocyte % 15.5 % (19-41); Mean Corp Hgb Conc 35.7 g/gl (32-36); Mean Corpuscular Hgb 31.4 pg (27.0-32.0); Mean Corpuscular Volume 87.8 fL (81-99); Mean Platelet Vol. 13.1 fl (6.2-12.0); Monocyte# 1.11 X10^3/uL; Monocyte% 10.9 % (0-10); Neutrophil # 7.31 X10^3/uL (2.7-7.7); Neutrophil % 71.9 % (47-70); Partial Thromboplast Time 29.4 Seconds (24.1-36.2); Platelet Count 195 K/mm3 (150-450); RBC Distribution Width SD 42.3 fl (35.1-43.9); Red Blood Count 5.51 M/mm3 (4.2-5.4); White Blood Count 10.2 K/mm3 (4.4-11.0)
[2018-07-13 20:57] LABS: Anion Gap 11 (5-15); BUN 19 mg/dL (7-18); BUN/Creat Ratio 17.8 RATIO (10-20); Calcium,Total 9.6 mg/dL (8.5-10.1); Chloride 104 mmol/L (98-107); Creatinine, Serum 1.07 mg/dL (0.55-1.02); EST Glomerular Filtration Rate 52 mL/min (>60); Est Glom Filt Rate - Afr Amer 63 mL/min (>60); Estimated Creatinine Clearance 35.43 ml/min; Glucose 132 mg/dL (74-106); Potassium 3.8 mmol/L (3.5-5.1); Sodium Level 138 mmol/L (136-145)
[2018-07-13 21:05] LABS: POSITIVE COUNT NO; POSITIVE DIFFERENTIAL NO; POSITIVE MORPHOLOGY NO
--- NOTE | 2018-07-13 21:30 | PCM.HP.STD ---
Problem List (1) Hypertension Status: Chronic (2) Acute CVA (cerebrovascular accident) Status: Acute (3) Atrial flutter Status: Acute Qualifiers: Atrial flutter type: typical Qualified Code(s): I48.3 - Typical atrial flutter (4) Renal colic on right side Status: Resolved (5) Kidney stone on right side Status: Resolved History of Present Illness Date of Admission: 07/13/18 Chief Complaint: stroke-like symptoms x 1 day The patient is a 82 year old F with a significant history of sarcoidosis; A. fib, hypertension and previous stroke who presents with strokelike symptoms that started a few hours before her admission. Reportedly on the day of admission patient fell at about 12 noon; and about 5 PM. Each time she found it difficult to get up but she eventually got up. She attributes her falling to her legs giving up. She had another fall after 5:00pm. With this last fall, she was in a chair and the whole chair and herself rolled over. A neighbor checked on her and found that patient was having left-sided weakness. As stated above she had a previous CVA about 2 years that affected her speech but eventually it resolved without any deficits although she reported that she has persistent sore throat from the previous CVA. She was on Eliquis but she reported that she stopped taking Eliquis because of cost and ecchymosis. She reports that she has tried three different oral anticoagulants. She is not on any anticoagulants at this time. She takes a baby aspirin every day. She took her baby aspirin on the day of admission. She was recently started on amlodipine for hypertension and she reports dizziness; tremors and weakness with amlodipine. She even attributes her strokelike symptoms to amlodipine. She was admitted at our our about a week ago for a pneumonia and a kidney stone. She had a successful lithotripsy with passing of stones. And she has completed her antibiotics for pneumonia. 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 Alcohol: None - *Family History Maternal History Items: - - No stroke Paternal History Items: - - No stroke Review of Systems Constitutional: Denies: Chills, Fever, Weight Change Eyes: Denies: Blurred vision, Pain HEENT: Denies: Head Aches, Sinus Congestion, Sinus Drainage Cardiovascular: Denies: Chest Pain, Palpitations Respiratory: Denies: Cough, Shortness of breath at rest, Sputum production Gastrointestinal: Denies: Abdominal Pain, Nausea, Vomiting Genitourinary: Denies: Dysuria Musculoskeletal: Denies: Joint Pain, Joint Tenderness Skin: Denies: Rash, Wounds Neurological: Reports: Focal weakness - Left arm and left leg.. Denies: Slurred speech, Numbness, Tingling Psychiatric: Denies: Anxiety, Depression, Homicidal Ideations, Suicidal Ideations Hematologic/ Lymphatic: Denies: Easy Bruising, Easy Bleeding VTE Information - Inpt Only VTE Present on Admission: No VTE Mechan Device Prophylaxis: None VTE Pharm Prophylaxis ordered?: Yes Patient Problems: Active and Suspected Problems Acute CVA (cerebrovascular accident) (Acute) - Physical Exam General: Alert, Oriented x3, Cooperative HEENT: Atraumatic, PERRLA, EOMI, Normocephalic Neck: Supple, No JVD, Negative Carotid Bruits Lungs: Clear to auscultation, Normal air movement Cardiovascular: Normal S1, Normal S2, Irregular Rate Abdomen: Bowel Sounds Present, Soft, Non Tender Extremities: No edema, Capillary Refill Less than 3 Seconds Skin: No rashes, No breakdown Musculoskeletal: No Tenderness to Palpation of Joints or Extremities Neurological: - - Patient cannot shrug her left shoulder; unable to raise her left arm; she can squeeze fingers with the left arm. Unable to do meeqhy-[id number] test of left arm. She has full range of motion in left leg; but strength in left leg is 3/5. Right side is unremarkable. Reflexes are not hyperactive. She has left facial droop. Psych/Mental Status: Normal Affect, Appropriate Vital Signs Temp Pulse Resp BP Pulse Ox 97.8 F 90 16 145/80 H 98 07/13/18 18:55 07/13/18 20:57 07/13/18 20:57 07/13/18 20:57 07/13/18 20:57 Oxygen Flow Rate (L/min) 2 Oxygen Delivery Method Nasal Cannula Weight: 54.431 kg Body Mass Index (BMI) 20.5 Finger Stick Blood Glucose 113 Laboratory Tests Past 24 Hrs 07/13/18 07/13/18 07/13/18 19:47 19:47 19:47 WBC 10.2 RBC 5.51 H Hgb 17.3 H Hct 48.4 H MCV 87.8 MCH 31.4 MCHC 35.7 RDW 13.0 RDW Differential 42.3 Plt Count 195 MPV 13.1 H Immature Gran % (Auto) 0.300 Neut % (Auto) 71.9 H Lymph % (Auto) 15.5 L [place] % (Auto) 10.9 H Eos % (Auto) 1.0 Baso % (Auto) 0.4 Absolute Neuts (auto) 7.3 Absolute Lymphs (auto) 1.58 Total Counted Not Reportable PT 13.3 INR 1.0 APTT 29.4 Sodium 138 Potassium 3.8 Chloride 104 Carbon Dioxide 23.0 Anion Gap 11 BUN 19 H Creatinine 1.07 H Estim Creat Clear Calc 35.43 Est GFR (MDRD) Af Amer 63 Est GFR (MDRD) Non-Af 52 L BUN/Creatinine Ratio 17.8 Glucose 132 H Calcium 9.6 Troponin I < 0.015 POC Glucose 07/13/18 20:27 POC Glucose 113 H Assessment/Plan All Active Problems Pneumonia (Resolved) Renal colic on right side (Resolved) Kidney stone on right side (Resolved) Acute CVA (cerebrovascular accident) (Acute) Atrial flutter (Acute) Patient is a 82 year old F with a significant history of A. fib, hypertension and previous stroke who presents with strokelike symptoms that started a few hours before her admission. Probable CVA ED doctor reported that patient refused a TPA after risk and benefits were discussed. Head CT with no acute pathology. MRI/MRA of head and neck per stroke protocol ordered. Patient stated that she is claustrophobic. Ativan on route to MRI. Fasting lipids ordered. Hemoglobin A1c ordered Patient was not hypoglycemic on admission -Check TTE -Permissive HTN for 24 hrs, assisted goal BP < 130/80 mmHg . Home amlodipine held at this time. Aspirin 325 given. Daily aspirin High intensity statin ST/PT/OT to evaluate and treat Neurology consult Hypertension Not at goal at the time of admission. But this could be due to her stroke. Patient reports symptoms with amlodipine. When patient is stable consider discussing blood pressure management with patient. Atrial fibrillation Controlled at this time. Ventricular rate is between higher 90s-100s. Consider rate control when appropriate. DVT prophylaxis with heparin. Code Visit Inpatient E&M: [id number] Init Hosp L3
--- NOTE | 2018-07-13 22:01 | NURSING ---
Called ED hotel breakfast attendant, Eric at this time to confirm Pt okay to come to PCU.
[2018-07-14] VITALS (11 sets, daily range): BP systolic 137–144; BP diastolic 69–89; PULSE 73–94; RESP 16–18; TEMP 36.4–37.2; O2SAT 95–98; BMI 22.1
[2018-07-14] MEDS: Atorvastatin Calcium 40 MG Tablet PO (00:01)
[2018-07-14] MEDS: Aspirin 325 MG Tablet PO (00:02)
[2018-07-14 06:09] LABS: Anion Gap 10 (5-15); BUN 17 mg/dL (7-18); BUN/Creat Ratio 18.7 RATIO (10-20); Calcium,Total 8.9 mg/dL (8.5-10.1); Chloride 104 mmol/L (98-107); Cholesterol 193 mg/dL (200); Creatinine, Serum 0.91 mg/dL (0.55-1.02); EST Glomerular Filtration Rate 63 mL/min (>60); Est Glom Filt Rate - Afr Amer 76 mL/min (>60); Estimated Creatinine Clearance 41.87 ml/min; Glucose 88 mg/dL (74-106); High Density Lipoprotein 65 mg/dL; Potassium 3.3 mmol/L (3.5-5.1); Sodium Level 142 mmol/L (136-145); Triglycerides 75 mg/dL; Very Low Density Lipoprotein 15 mg/dL (5-40)
--- NOTE | 2018-07-14 07:24 | PCM.CONS.GEN ---
Reason for Consult Date of Consultation: 07/14/18 History of Present Illness: The patient is a 82 year old F who reports she was recovering from a kidney stone, apparently fell but doesnt remember falling, and had trouble getting up/. they think i had a stroke because i couldnt get up off the floor. feels normal now except for muscle pain in her neck. pt doesnt know reason for falls. denies left sided weakness. maybe my left leg is a little weak but better today. reports cva 1 1/2 yrs ago, no residual. reports couldnt afford noac, but willing to consider coumadin. per admit h&p:The patient is a 82 year old F with a significant history of sarcoidosis; A. fib, hypertension and previous stroke who presents with strokelike symptoms that started a few hours before her admission. Reportedly on the day of admission patient fell at about 12 noon; and about 5 PM. Each time she found it difficult to get up but she eventually got up. She attributes her falling to her legs giving up. She had another fall after 5:00pm. With this last fall, she was in a chair and the whole chair and herself rolled over. A neighbor checked on her and found that patient was having left-sided weakness. As stated above she had a previous CVA about 2 years that affected her speech but eventually it resolved without any deficits although she reported that she has persistent sore throat from the previous CVA. She was on Eliquis but she reported that she stopped taking Eliquis because of cost and ecchymosis. She reports that she has tried three different oral anticoagulants. She is not on any anticoagulants at this time. She takes a baby aspirin every day. She took her baby aspirin on the day of admission. She was recently started on amlodipine for hypertension and she reports dizziness; tremors and weakness with amlodipine. She even attributes her strokelike symptoms to amlodipine. She was admitted at our our about a week ago for a pneumonia and a kidney stone. She had a successful lithotripsy with passing of stones. And she has completed her antibiotics for pneumonia. 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 Tobacco Use: Non-smoker Alcohol: None - *Family History Maternal History Items: - - No stroke Paternal History Items: - - No stroke Review of Systems Constitutional: Denies: Chills, Fever, Weight Change HEENT: Denies: Head Aches, Sinus Congestion, Sinus Drainage Cardiovascular: Denies: Chest Pain, Palpitations Respiratory: Denies: Cough, Shortness of breath at rest, Sputum production Gastrointestinal: Denies: Abdominal Pain, Nausea, Vomiting Genitourinary: Denies: Dysuria Musculoskeletal: Denies: Joint Pain, Joint Tenderness Neurological: Reports: Focal weakness Psychiatric: Denies: Anxiety, Depression, Homicidal Ideations, Suicidal Ideations Hematologic/ Lymphatic: Denies: Easy Bruising, Easy Bleeding Patient Problems: Active and Suspected Problems Acute CVA (cerebrovascular accident) (Acute) - Physical Exam General: Alert, Oriented x3, Cooperative, No apparent distress Neurological: Sensory exam intact to light touch and pain, - - left arm flaccid mild left hemianopsia Vital Signs Temp Pulse Resp BP Pulse Ox 36.4 C L 94 18 144/82 H 98 07/14/18 06:45 07/14/18 06:45 07/14/18 06:45 07/14/18 06:45 07/14/18 06:45 Oxygen Flow Rate (L/min) 2 Oxygen Delivery Method Room Air Weight: 58.4 kg Body Mass Index (BMI) 22.1 Intake and Output for Last 24 Hours 07/12/18 07/13/18 07/14/18 23:59 23:59 23:59 Intake Total 100 / 100 Balance 100 / 100 Laboratory Tests Past 24 Hrs 07/13/18 07/14/18 07/14/18 23:04 05:02 05:02 Sodium 142 Potassium 3.3 L Chloride 104 Carbon Dioxide 28.0 Anion Gap 10 BUN 17 Creatinine 0.91 Estim Creat Clear Calc 41.87 Est GFR (MDRD) Af Amer 76 Est GFR (MDRD) Non-Af 63 BUN/Creatinine Ratio 18.7 Glucose 88 Hemoglobin A1c Pending Calcium 8.9 Troponin I < 0.015 Triglycerides 75 Cholesterol 193 LDL Cholesterol 113 VLDL Cholesterol 15 HDL Cholesterol 65 Current Medications Generic Name Dose Route Start Last Admin Trade Name Siomara PRN Reason Stop Dose Admin Aspirin 81 mg 07/14/18 08:00 Aspirin, Baby PO DAILY@0800 [facility] Atorvastatin Calcium 40 mg 07/13/18 23:00 07/14/18 00:01 Lipitor PO 40 mg QHS VENITA Administration Heparin Sodium (Porcine) 5,000 unit 07/14/18 10:00 Heparin Na SC Q12 [facility] Labetalol HCl 10 mg 07/13/18 22:26 Trandate IV 07/15/18 05:00 Q10M PRN BP > 220/120 Magnesium Hydroxide 30 ml 07/13/18 22:26 Milk Of Magnesia PO DAILY PRN Constipation Nutritional Formula (Lactose Free) 120 ml 07/14/18 10:00 Ensure Enlive PO 4X/DAY [facility] Ondansetron HCl 4 mg 07/13/18 22:26 Zofran IV Q8H PRN PRN NAUSEA Sodium Chloride 5 - 30 ml 07/13/18 22:45 IV UD PRN SALINE FLUSH ct reviewed, chronic subcort wm disease Laboratory Results - last 24 hr 07/13/18 07/13/18 07/13/18 19:47 19:47 19:47 WBC 10.2 RBC 5.51 H Hgb 17.3 H Hct 48.4 H MCV 87.8 MCH 31.4 MCHC 35.7 RDW 13.0 RDW Differential 42.3 Plt Count 195 MPV 13.1 H Immature Gran % (Auto) 0.300 Neut % (Auto) 71.9 H Lymph % (Auto) 15.5 L [place] % (Auto) 10.9 H Eos % (Auto) 1.0 Baso % (Auto) 0.4 Absolute Neuts (auto) 7.3 Absolute Lymphs (auto) 1.58 Total Counted Not Reportable PT 13.3 INR 1.0 APTT 29.4 Sodium 138 Potassium 3.8 Chloride 104 Carbon Dioxide 23.0 Anion Gap 11 BUN 19 H Creatinine 1.07 H Estim Creat Clear Calc 35.43 Est GFR (MDRD) Af Amer 63 Est GFR (MDRD) Non-Af 52 L BUN/Creatinine Ratio 17.8 Glucose 132 H Calcium 9.6 Troponin I < 0.015 Triglycerides Cholesterol LDL Cholesterol VLDL Cholesterol HDL Cholesterol POC Glucose 07/13/18 07/13/18 07/14/18 20:27 23:04 05:02 WBC RBC Hgb Hct MCV MCH MCHC RDW RDW Differential Plt Count MPV Immature Gran % (Auto) Neut % (Auto) Lymph % (Auto) [place] % (Auto) Eos % (Auto) Baso % (Auto) Absolute Neuts (auto) Absolute Lymphs (auto) Total Counted PT INR APTT Sodium 142 Potassium 3.3 L Chloride 104 Carbon Dioxide 28.0 Anion Gap 10 BUN 17 Creatinine 0.91 Estim Creat Clear Calc 41.87 Est GFR (MDRD) Af Amer 76 Est GFR (MDRD) Non-Af 63 BUN/Creatinine Ratio 18.7 Glucose 88 Calcium 8.9 Troponin I < 0.015 Triglycerides 75 Cholesterol 193 LDL Cholesterol 113 VLDL Cholesterol 15 HDL Cholesterol 65 POC Glucose 113 H Assessment/Plan All Active Problems Pneumonia (Resolved) Renal colic on right side (Resolved) Kidney stone on right side (Resolved) Acute CVA (cerebrovascular accident) (Acute) Atrial flutter (Acute) left mca infarct, afib repeat ct, pt defers mri consider anticoag 5-7 days carotid us echo tele pt/ot/sp consider rehab
--- NOTE | 2018-07-14 07:27 | CON.PCM_ITS ---
Reason for Consult Date of Consultation: 07/14/18 History of Present Illness: The patient is a 82 year old F who reports she was recovering from a kidney stone, apparently fell but doesnt remember falling, and had trouble getting up/ . they think i had a stroke because i couldnt get up off the floor. feels normal now except for muscle pain in her neck. pt doesnt know reason for falls. denies left sided weakness. maybe my left leg is a little weak but better today . reports cva 1 1/2 yrs ago, no residual. reports couldnt afford noac, but willing to consider coumadin. per admit h&p:The patient is a 82 year old F with a significant history of sarcoidosis; A. fib, hypertension and previous stroke who presents with strokelike symptoms that started a few hours before her admission. Reportedly on the day of admission patient fell at about 12 noon; and about 5 PM. Each time she found it difficult to get up but she eventually got up. She attributes her falling to her legs giving up. She had another fall after 5: 00pm. With this last fall, she was in a chair and the whole chair and herself rolled over. A neighbor checked on her and found that patient was having left-sided weakness. As stated above she had a previous CVA about 2 years that affected her speech but eventually it resolved without any deficits although she reported that she has persistent sore throat from the previous CVA. She was on Eliquis but she reported that she stopped taking Eliquis because of cost and ecchymosis. She reports that she has tried three different oral anticoagulants. She is not on any anticoagulants at this time. She takes a baby aspirin every day. She took her baby aspirin on the day of admission. She was recently started on amlodipine for hypertension and she reports dizziness; tremors and weakness with amlodipine. She even attributes her strokelike symptoms to amlodipine. She was admitted at our our about a week ago for a pneumonia and a kidney stone. She had a successful lithotripsy with passing of stones. And she has completed her antibiotics for pneumonia. Past Medical History Past Medical History (Chronic Problems): Chronic Problems Hypertension (Chronic) Hypertension, accelerated (Chronic) Carotid stenosis (Chronic) Stroke/cerebrovascular accident (Chronic) Allergies adhesive Adverse Reaction (Verified 07/13/18 18:56) Rash Home Medications: Ambulatory Orders Medication Instructions Recorded Aspirin 81 mg PO DAILY 07/04/18 Amlodipine [Norvasc] 10 mg PO DAILY #60 tab 07/05/18 Surgical History: hysterectomy, tonsillectomy Psychiatric History: No pertinent psych hx ADULT HEALTH CLINICAL NURSE SPECIALIST History: No pertinent ADULT HEALTH CLINICAL NURSE SPECIALIST history Lives: Alone Smoking Status: Former smoker - Smoked for 1 month many years ago. Tobacco Use: Non-smoker Alcohol: None - *Family History Maternal History Items: - - No stroke Paternal History Items: - - No stroke Review of Systems Constitutional: Denies: Chills, Fever, Weight Change HEENT: Denies: Head Aches, Sinus Congestion, Sinus Drainage Cardiovascular: Denies: Chest Pain, Palpitations Respiratory: Denies: Cough, Shortness of breath at rest, Sputum production Gastrointestinal: Denies: Abdominal Pain, Nausea, Vomiting Genitourinary: Denies: Dysuria Musculoskeletal: Denies: Joint Pain, Joint Tenderness Neurological: Reports: Focal weakness Psychiatric: Denies: Anxiety, Depression, Homicidal Ideations, Suicidal Ideations Hematologic/ Lymphatic: Denies: Easy Bruising, Easy Bleeding Patient Problems: Active and Suspected Problems Acute CVA (cerebrovascular accident) (Acute) - Physical Exam General: Alert, Oriented x3, Cooperative, No apparent distress Neurological: Sensory exam intact to light touch and pain, - - left arm flaccid mild left hemianopsia Vital Signs Temp Pulse Resp BP Pulse Ox 36.4 C L 94 18 144/82 H 98 07/14/18 06:45 07/14/18 06:45 07/14/18 06:45 07/14/18 06:45 07/14/18 06:45 Oxygen Flow Rate (L/min) 2 Oxygen Delivery Method Room Air Weight: 58.4 kg Body Mass Index (BMI) 22.1 Intake and Output for Last 24 Hours 07/12/18 07/13/18 07/14/18 23:59 23:59 23:59 Intake Total 100 / 100 Balance 100 / 100 Laboratory Tests Past 24 Hrs 07/13/18 07/14/18 07/14/18 23:04 05:02 05:02 Sodium 142 Potassium 3.3 L Chloride 104 Carbon Dioxide 28.0 Anion Gap 10 BUN 17 Creatinine 0.91 Estim Creat Clear Calc 41.87 Est GFR (MDRD) Af Amer 76 Est GFR (MDRD) Non-Af 63 BUN/Creatinine Ratio 18.7 Glucose 88 Hemoglobin A1c Pending Calcium 8.9 Troponin I < 0.015 Triglycerides 75 Cholesterol 193 LDL Cholesterol 113 VLDL Cholesterol 15 HDL Cholesterol 65 Current Medications Generic Name Dose Route Start Last Admin Trade Name Siomara PRN Reason Stop Dose Admin Aspirin 81 mg 07/14/18 08:00 Aspirin, Baby PO DAILY@0800 [facility] Atorvastatin Calcium 40 mg 07/13/18 23:00 07/14/18 00:01 Lipitor PO 40 mg QHS VENITA Administration Heparin Sodium (Porcine) 5,000 unit 07/14/18 10:00 Heparin Na SC Q12 [facility] Labetalol HCl 10 mg 07/13/18 22:26 Trandate IV 07/15/18 05:00 Q10M PRN BP > 220/120 Magnesium Hydroxide 30 ml 07/13/18 22:26 Milk Of Magnesia PO DAILY PRN Constipation Nutritional Formula (Lactose Free) 120 ml 07/14/18 10:00 Ensure Enlive PO 4X/DAY [facility] Ondansetron HCl 4 mg 07/13/18 22:26 Zofran IV Q8H PRN PRN NAUSEA Sodium Chloride 5 - 30 ml 07/13/18 22:45 IV UD PRN SALINE FLUSH ct reviewed, chronic subcort wm disease Laboratory Results - last 24 hr 07/13/18 07/13/18 07/13/18 19:47 19:47 19:47 WBC 10.2 RBC 5.51 H Hgb 17.3 H Hct 48.4 H MCV 87.8 MCH 31.4 MCHC 35.7 RDW 13.0 RDW Differential 42.3 Plt Count 195 MPV 13.1 H Immature Gran % (Auto) 0.300 Neut % (Auto) 71.9 H Lymph % (Auto) 15.5 L Warren % (Auto) 10.9 H Eos % (Auto) 1.0 Baso % (Auto) 0.4 Absolute Neuts (auto) 7.3 Absolute Lymphs (auto) 1.58 Total Counted Not Reportable PT 13.3 INR 1.0 APTT 29.4 Sodium 138 Potassium 3.8 Chloride 104 Carbon Dioxide 23.0 Anion Gap 11 BUN 19 H Creatinine 1.07 H Estim Creat Clear Calc 35.43 Est GFR (MDRD) Af Amer 63 Est GFR (MDRD) Non-Af 52 L BUN/Creatinine Ratio 17.8 Glucose 132 H Calcium 9.6 Troponin I < 0.015 Triglycerides Cholesterol LDL Cholesterol VLDL Cholesterol HDL Cholesterol POC Glucose 07/13/18 07/13/18 07/14/18 20:27 23:04 05:02 WBC RBC Hgb Hct MCV MCH MCHC RDW RDW Differential Plt Count MPV Immature Gran % (Auto) Neut % (Auto) Lymph % (Auto) Warren % (Auto) Eos % (Auto) Baso % (Auto) Absolute Neuts (auto) Absolute Lymphs (auto) Total Counted PT INR APTT Sodium 142 Potassium 3.3 L Chloride 104 Carbon Dioxide 28.0 Anion Gap 10 BUN 17 Creatinine 0.91 Estim Creat Clear Calc 41.87 Est GFR (MDRD) Af Amer 76 Est GFR (MDRD) Non-Af 63 BUN/Creatinine Ratio 18.7 Glucose 88 Calcium 8.9 Troponin I < 0.015 Triglycerides 75 Cholesterol 193 LDL Cholesterol 113 VLDL Cholesterol 15 HDL Cholesterol 65 POC Glucose 113 H Assessment/Plan All Active Problems Pneumonia (Resolved) Renal colic on right side (Resolved) Kidney stone on right side (Resolved) Acute CVA (cerebrovascular accident) (Acute) Atrial flutter (Acute) left mca infarct, afib repeat ct, pt defers mri consider anticoag 5-7 days carotid us echo tele pt/ot/sp consider rehab
[2018-07-14 08:40] LABS: Hemoglobin A1c 5.7 % (4.2-6.3)
[2018-07-14] MEDS: Acetaminophen 325 MG Tablet PO ×2 (09:59→13:49)
[2018-07-14] MEDS: Aspirin 81 MG TAB.CHEW PO (09:59)
--- NOTE | 2018-07-14 11:55 | DCINST_ITS ---
- Discharge Diagnoses Current Active Problems: Current Active and Chronic Problems Acute CVA (cerebrovascular accident) (Acute) Hypertension (Chronic) You will use the following diet at home:: Calorie/Carbohydrate Controlled ( specify 1200, 1400, etc) - 1800, Cardiac Your food should be the consistency of: Regular Your liquids should be the consistency of: Regular/Thin Discharge Activity: Return to Normal Activity Additional Instructions: start warfarin in 1-2 weeks Allergies/Adverse Reactions: Allergies adhesive Adverse Reaction (Verified 07/13/18 18:56) Rash Medications to take at Discharge Aspirin 81 mg PO DAILY 07/04/18 Amlodipine [Norvasc] 10 mg PO DAILY #60 tab 07/05/18 Acetaminophen [Tylenol Tablet] 325 mg PO Q4H PRN PRN tablet 07/14/18 Aspirin [Aspirin, Baby] 81 mg PO DAILY@0800 tab.chew 07/14/18 Atorvastatin Calcium [Lipitor] 40 mg PO QHS tablet 07/14/18 Ensure Enlive 120 ml PO 4X/DAY liquid 07/14/18 Magnesium Hydroxide [Milk Of Magnesia] 30 ml PO DAILY PRN udc 07/14/18 Warfarin [Coumadin ([facility])] 5 mg PO DAILY #30 tablet 07/14/18 The following prescriptions were given: Warfarin [Coumadin ([facility])] 5 mg PO DAILY #30 tablet Primary Care Physician: Larry Cooper MD [Primary Care Provider] - Please follow up with your Primary Care Physician in: 2 weeks Test Results: Test results from this visit will be discussed in further detail at your follow- up appointment, if applicable. Please Follow Up With: Sky Joya MD When: as directed
--- NOTE | 2018-07-14 12:41 | CASEMGMT ---
ISABELLA spoke with Alisa in rehab and Dr Joya would accept patient in the rehab unit if she is willing. ISABELLA spoke with Remy BURNETT and patient is willing to go to the rehab unit. ISABELLA notified Alisa in the rehab unit. However, we are still waiting on therapy to see patient before she goes so we can make sure she can do 3 hours of therapy. Plan: [facility] 4th floor rehab as long as therapy feels she can do 3 hours of therapy. Brigid SALINAS MSW
--- NOTE | 2018-07-14 13:04 | CASEMGMT ---
Social Work: Met with patient in room as patient expressed interest in completing advance directives. Patient states that she will be moved to rehab today and would prefer to complete documents at a later time. This SW explained that a SW on the rehab unit would be able to assist with advance directive documents. Patient verbalizes understanding. Spoke to MARC Schwartz (rehab social media project manager). Margot aware that patient will be admitted to rehab today and is interested in competing advance directive documents while on rehab. DONNA Levine
--- NOTE | 2018-07-14 15:57 | PCM.DC.SUM ---
<Remy Gil - Last Filed: 07/14/18 15:57> Discharge Date and Diagnosis - Problem List Patient Problems: Active and Suspected Problems Acute CVA (cerebrovascular accident) (Acute) Date of Admission: 07/13/18 Date of Discharge: 07/14/18 - Primary Discharge Diagnosis Active and Suspected Problems Acute CVA (cerebrovascular accident) (Acute) Hx of CVA chronic Afib medication noncompliance Prediabetes HTN Carotid stenosis - Secondary Discharge Diagnosis Chronic Problems Hypertension (Chronic) Hypertension, accelerated (Chronic) Carotid stenosis (Chronic) Stroke/cerebrovascular accident (Chronic) Hospital Course and Treatment Imaging Results: CT/Brain/Head without Contrast IMPRESSION: Chronic involutional changes of the brain. CT/Brain/Head without Contrast IMPRESSION: Stable chronic ischemic and atrophic changes. No acute intracranial abnormality. RAD/Chest 1 View IMPRESSION: No acute thoracic pathology. Consults: Mahnaz - neuro Operations: None Procedures: 2-D Echocardiogram Summary of Care Provided: Physical exam on day of discharge: General: Resting comfortably NAD Psych: A/Ox3 normal affect HEENT: PEARRLA AT NC Neck: Supple NT CV: RRR no m/t/r/g/h Resp: CTA Abd: [id number] Soft NT no guarding or rigidity Ext: DP2+= no edema Skin: W/D normal turgor Lymph/Heme: No active bleeding or adenopathy Neuro: CN2-12 intact. Unable to raise left arm. Only able to wiggle his fingers slightly, able to move all 5 left digits. Sensation intact left hand. Mild left leg and foot weakness, sensation intact. Hospital course:. The patient is a 82 year old F with a history of CVA, chronic atrial fibrillation-patient took herself off of blood thinner, hypertension, history of carotid stenosis-patient of Dr. Pena, who presented to the emergency room with acute onset of left upper extremity weakness. She was brought to the ER and underwent a CT of the brain which was negative for acute process. She was admitted to the PCU for acute CVA with neurology on consult. She was placed on statin, aspirin. She was previously on eliquis for chronic afib and she had taken herself off of this because she was concerned about the side effects. She also has a history of severe carotid stenosis which she states she had previously discussed surgery for with Dr. Pena. She had a carotid ultrasound that did show severe right sided carotid stenosis. She underwent an echo cardiogram which results are pending. Repeat CT brain was negative. She refused MRI/MRA, CTA of the head and neck. She continued to have severe left sided weakness, could not raise her arm, could only slightly wiggle fingers. Her left leg and foot are both somewhat weak as well although not as significantly impacted as her arm. She was advised to and was agreeable to go to the rehab unit for at least one week. We also encouraged her to follow up with Dr. Pena concerning her carotid stenosis, and with her PCP. She will also need to start coumadin in 5-7 days when ok with neurology. She will need a baseline INR when appropriate. She was discharged to the Rehab unit in stable condition. This patient was seen by Remy Gil PA-C under the supervision of Doctor Chayito. [] Discharge Diet: Low fat/ Low Cholesterol, 1800 Calorie Control Diet, 2000 mg Sodium Diet Discharge Activity: Return to Normal Activity Home Medications: Medications to take at Discharge Aspirin 81 mg PO DAILY 07/04/18 Amlodipine [Norvasc] 10 mg PO DAILY #60 tab 07/05/18 Acetaminophen [Tylenol Tablet] 325 mg PO Q4H PRN PRN tablet 07/14/18 Aspirin [Aspirin, Baby] 81 mg PO DAILY@0800 tab.chew 07/14/18 Atorvastatin Calcium [Lipitor] 40 mg PO QHS tablet 07/14/18 Ensure Enlive 120 ml PO 4X/DAY liquid 07/14/18 Magnesium Hydroxide [Milk Of Magnesia] 30 ml PO DAILY PRN udc 07/14/18 Warfarin [Coumadin ([facility])] 5 mg PO DAILY #30 tablet 07/14/18 Following Prescrptions Were Given to Patient: Warfarin [Coumadin ([facility])] 5 mg PO DAILY #30 tablet Primary Care Physician: Larry Cooper MD [Primary Care Provider] - Please follow up with your Primary Care Physician in: 2 weeks Please Follow Up With: Sky Joya MD When: as directed Medical Necessity - Tobacco Use Smoking Status: Former smoker Tobacco Use: Non-smoker Meaningful Use Info Meaningful Use Diagnoses (Choose all that apply): Ischemic CVA - CVA Therapy Assessed for PT,OT and/or ST?: Yes - Ischemic Stroke Antithrombotic order at d/c?: Yes Dx of Atrial fib/flutter?: Yes Anticoagulant at discharge?: Yes Statins at discharge?: Yes Primary Dx Acute Ischemic CVA?: Yes IV tPA ordered during stay?: No Reason IV t-PA not ordered: Procedure not Indicated <Mnaish Stratton - Last Filed: 07/14/18 16:23> Discharge Date and Diagnosis - Primary Discharge Diagnosis Active and Suspected Problems Acute CVA (cerebrovascular accident) (Acute) - Secondary Discharge Diagnosis Chronic Problems Hypertension (Chronic) Hypertension, accelerated (Chronic) Carotid stenosis (Chronic) Stroke/cerebrovascular accident (Chronic) Hospital Course and Treatment Imaging Results: 07/14/18 07:52 Brain/Head without Contrast [CT] Routine Operations: None Procedures: 2-D Echocardiogram Summary of Care Provided: Patient seen and examined independently. Data reviewed. I agree with the above note by the physician promotional advertising assistant. The patient is a 82 year old F patient presents with left upper extremity weakness. Patient had a head CT that showed no acute process. Patient was adamant about not having an MRI. Repeat CAT scan again showed no evolution of her stroke but clinically, patient has a stroke with dense left arm hemiparesis. Patient also had does have some decreased strength in her left lower extremity but she is able to lifted off the bed. Patient took herself off of anticoagulation. Patient will need to resume Coumadin when okayed by neurology for her stroke as this is likely another thromboembolic stroke in her atrial fibrillation. Patient was indecisive about going home versus rehab. Given the patient lives by herself and it was expressed that she would be best suited going to rehab. Patient had these unrealistic expectation that she is going to be in rehab currently. Patient was educated that that would not occur and the goal is to eventually get her home when she is strong enough. Patient eventually did agree to go to rehab. [] Discharge Diet: Low fat/ Low Cholesterol, 1800 Calorie Control Diet, 2000 mg Sodium Diet Discharge Activity: Return to Normal Activity Disposition: Inpt Rehab Unit/Facility Minutes spent on discharge:: 32 Patient Condition:: Stable Meaningful Use Info Meaningful Use Diagnoses (Choose all that apply): Ischemic CVA - CVA Therapy Assessed for PT,OT and/or ST?: Yes - Ischemic Stroke Antithrombotic order at d/c?: Yes Dx of Atrial fib/flutter?: Yes Anticoagulant at discharge?: No Reason anticoagulant not ordered: Drug Declined by Patient Statins at discharge?: Yes Primary Dx Acute Ischemic CVA?: Yes IV tPA ordered during stay?: No Reason IV t-PA not ordered: Procedure not Indicated Code Visit Inpatient E&M: [id number] Disch Hosp
== END 2018-07-14 18:19 | DRG 65 ==
LOC: ED 21:48 → PCU 21:55
PROVIDERS: Admitting Provider Hospitalist; Emergency Provider Emergency Medicine; Family Provider Family Medicine; PCP Family Medicine
DX: I63.512 Cerebral infarction due to unspecified occlusion or stenosis of left middle cerebral artery (principal); G81.94 Hemiplegia, unspecified affecting left nondominant side; I10 Essential (primary) hypertension; R73.03 Prediabetes; I48.2 Chronic atrial fibrillation; Z91.14 Patient's other noncompliance with medication regimen; Z86.73 Personal history of transient ischemic attack (TIA), and cerebral infarction without residual deficits; I65.29 Occlusion and stenosis of unspecified carotid artery; D86.9 Sarcoidosis, unspecified; Z79.82 Long term (current) use of aspirin; R29.705 NIHSS score 5
CPT/HCPCS: 36415; 70450; 71045; 80048; 80061; 82962; 83036; 84484; 85025; 85610; 85730; 92523; 93005; 93306; 93880; 97162; 97166; 99285; A4216

== ENCOUNTER 2018-07-14 19:50 | Inpatient (IN) | payer MEDICARE, BC, SELFPAY ==
[2018-07-14 20:39] VITALS: BP 138/83; PULSE 92; RESP 16; TEMP 36.8; O2SAT 100; BMI 22.1
[2018-07-14] MEDS: Senna/Docusate Sodium 1 Tablet 2 TABLET PO (22:39)
[2018-07-14] MEDS: Acetaminophen 325 MG Tablet PO (22:40)
[2018-07-14] MEDS: Atorvastatin Calcium 40 MG Tablet PO (22:40)
[2018-07-15 05:11] LABS: Hematocrit 46.3 % (37-47); Hemoglobin 15.9 g/dl (12.0-15.0); Mean Corp Hgb Conc 34.3 g/gl (32-36); Mean Corpuscular Hgb 30.9 pg (27.0-32.0); Mean Corpuscular Volume 89.9 fL (81-99); Platelet Count 173 K/mm3 (150-450); RBC Distribution Width CV 13.4 % (11.6-14.6); Red Blood Count 5.15 M/mm3 (4.2-5.4); White Blood Count 7.2 K/mm3 (4.4-11.0)
--- NOTE | 2018-07-15 05:15 | NURSING ---
PT STATES SHE HAS A FRONTAL HEADACHE RATED #1 ON PAIN SCALE. DENIES HAVING ANY OTHER NEW STROKE SYMPTOMS. SPEECH IS CLEAR AND APPROPRIATE. PT DOES NOT WANT TO TAKE ANY TYLENOL.
[2018-07-15 05:19] LABS: Scan Indicated on CBC? Y/N NO
[2018-07-15 05:26] LABS: Anion Gap 8 (5-15); BUN 15 mg/dL (7-18); Calcium,Total 8.8 mg/dL (8.5-10.1); Chloride 107 mmol/L (98-107); Creatinine, Serum 0.94 mg/dL (0.55-1.02); EST Glomerular Filtration Rate 61 mL/min (>60); Est Glom Filt Rate - Afr Amer 74 mL/min (>60); Estimated Creatinine Clearance 40.53 ml/min; Glucose 84 mg/dL (74-106); Potassium 4.1 mmol/L (3.5-5.1); Sodium Level 143 mmol/L (136-145)
[2018-07-15 05:37] VITALS: BP 146/83; PULSE 79
--- NOTE | 2018-07-15 05:46 | NURSING ---
PAGE PLACED TO DR QUINTANILLA.
--- NOTE | 2018-07-15 05:49 | NURSING ---
PT'S PUPILS REMAIN EQUAL AND ROUND AT 2MM. ALERT AND ORIENTED X 3. DENIES ANY NUMBNESS IN EXTREMITIES.
--- NOTE | 2018-07-15 05:59 | NURSING ---
DR QUINTANILLA PHONE INTO UNIT AND INFORMED OF PT'S HEADACHE. ORDERS GIVEN.
--- NOTE | 2018-07-15 06:03 | NURSING ---
CT READY FOR PT. SHANK PINNER NOTIFIED.
--- NOTE | 2018-07-15 06:10 | NURSING ---
PT REFUSING TO GO TO CT WITH STAFF. DISCUSSED AT LENGTH THE IMPORTANCE OF OBTAINING THIS TEST. PT ULTIMATELY REFUSES AND STATES SHE WILL NOT GO TO CT UNLESS PREAPPROVED BY HER INSURANCE COMPANY FIRST. PT STATES HER BODY IS VERY SENSITIVE AND FEELS HER JOHNSTON IS CAUSED FROM SOMETHING ENVIRONMENTAL.
--- NOTE | 2018-07-15 06:20 | NURSING ---
CT NOTIFIED THAT PT IS CURRENTLY REFUSING TO HAVE CT OF HEAD DONE. PAGE PLACED TO DR QUINTANILLA.
--- NOTE | 2018-07-15 06:30 | NURSING ---
PT INFORMED THAT MEDICARE IS HER PRIMARY INSURANCE AND WILL PAY OF 100% OF CT EXAM. PT STATES SHE STILL DOES NOT WANT TO DO THE CT EXAM BECAUSE OF ALL THE RADIATION THAT SHE HAS ALREADY BEEN EXPOSED TO FROM CT EXAMS. PT DOES NOT WANT FAMILY MEMBERS CALLED AT THIS TIME TO ASSIST HER WITH HER DECISION. PAIN REMAINS UNCHANGED. SPEECH IS CLEAR AND APPROPRIATE AND A/O X 3.
--- NOTE | 2018-07-15 08:10 | NURSING ---
Dr. Joya aware of refusal of CT scan, patient denies having a headache at this time.
[2018-07-15 08:46] VITALS: BP 123/75; PULSE 98; RESP 17; TEMP 36.7; O2SAT 97
[2018-07-15] MEDS: Aspirin 81 MG TAB.CHEW PO (08:47)
[2018-07-15 09:12] LABS: International Normalized Ratio 1.1; Prothrombin Time (Protime)PT. 13.9 SECONDS (11.7-14.9)
[2018-07-15] MEDS: Enoxaparin 40 MG/0.4 ML Syringe SC (11:05)
--- NOTE | 2018-07-15 11:57 | PCM.RU.PYE ---
Admission Information Status Changes from Prescreening?: No changes Identified Actual Problem List:: Falls, Cognitve Impr/Memory Loss, Mobility Impaired, Self Care Deficit, Know.Dfct/Disease Process, Ineffect.D/C Plan r/t Psy Potential Problem List:: DVT, Bleeding, Infection, UTI, Aspiration, Falls, Skin Integrity, Depression Risk of Complications DVT: LMWH, GREGG Hose, Sequential Compression Device Bleeding: Monitor Lab Values, Nursing to Teach Precautions for anti-coagulation therapy., Wound, if applicable, to be assessed every shift., Stroke patients assessed for lethargy or change in status. Infection: Clinical Staff to Monitor for S/S of infection:, S/S of infection include fever, redness, warmth, etc. Urinary Tract Infection: Monitor for frequency, burning, discomfort, or incontinence., Nursing will obtain urine sample for urinalysis and C&S when ordered. Aspiration: Clinical staff will monitor for coughing, drooling, congestion., Speech will evaluate swallowing and dsyphasia., Nursing will monitor patient swallowing during meals. Falls: Patient will be evaluated for Fall Precautions, Patient will be placed on Fall Precautions as indicated per protocol. Skin Breakdown: Nursing will assess skin daily using assessment tool., Nursing will place on Skin Breakdown Precautions as indicated. Pain: Clinical staff will assess patient's pain level per protocol., Medications will be given, if needed, and the pain level reassessed., Other methods: Massage, distraction, decrease stimulus, etc. used PRN. Plan of Care Patient requires physician specializing in physical medicine and rehab oversight to provide close medical supervision of rehab issues including: Pain Management, Sleep Problems, Bowel and Bladder, Medical and co-morbidity Management, DVT prophylaxis, Rehabilitation Leadership, Coordination of treatment team Patient needs Physical Therapy: For a minimum of 1 hour, At least 5 out of 7 days Patient needs Physical Therapy to improve:: Mobility, Mobility, Mobility, Strengthening, Transfers, Stretching, ROM, Endurance, Stairs, Gait, Balance Patient needs Occupational Therapy: For a minimum of 1 hour, At least 5 out of 7 days Patient needs Occupational Therapy to improve ADL's incl.: Eating, Grooming, Bathing, Dressing, Toileting, Toilet transfers, Community Reintegration, Higher functioning activities, Household tasks, Adaptive Equipment, Splinting, Other activities as determined Patient requires speech therapy: For a minimum of 1 hour, At least 5 out of 7 days Patient requires speech therapy for: Swallowing, Cognition, Language Skills, Compensatory Strategies Patient requires 24/ Rehabilitation Nursing for: Pain Issues, Identifying and preventing risk factors, Monitoring and reporting current medical conditions, Assisting with ambulation, transfer, and all ADL's, Teaching patients about disease process and medications, Family teaching, Providing safe environment, Bowel and Bladder Issues, Skin integrity, Medication Management Patient needs Medical Administrative/ Case Management for: Discharge Planning, Arranging Home Equipment or Services, Family Interventions Patient needs Dietary and Nutrition Services for: Adequate Nutrition, Nutritional Supplements, Nutritional Education Goals Patient will remain: free from falls, or injury at time of discharge. Patient will perform bed mobility at: MOD I level of assist. Patient will complete transfers from bed to chair at: MOD I level of assist. Patient will ambulate: 100 feet, with MOD I assist, with LRD Patient will complete upper body dressing at: MOD I level of assist. Patient will complete lower body dressing at: MOD I level of assist. Patient will complete toileting at: MOD I level of assist. Patient will perform bathing at: MOD I level of assist. Patient will complete grooming at: MOD I level of assist. Patient will complete home management skills at: MOD I level of assist. Patient will achieve: 12 stairs, at MOD I assist Patient will have pain level of: of 3 or less Patient's skin will: remain intact, free from infection. Patient will receive: adequate nutrition. Discharge Planning Anticipated D/C Destination: Home with Outpt Therapy Was Preadmission Assessment Accurate?: Yes
--- NOTE | 2018-07-15 16:55 | PCM.HP.COS ---
History of Present Illness Date of Admission: 07/14/18 Chief Complaint: CVA The patient is a 82 year old Female who was admitted to the rehab unit for rehabilitation. She has a PMH: CVA, chronic atrial fibrillation-patient took herself off of blood thinner, hypertension, a history of carotid stenosis and is a patient of Dr. Pena, she presented to the emergency room with acute onset of left upper extremity weakness, on 07/13/18. She a CT of the brain which was negative for acute process. She was admitted to the PCU for acute CVA with neurology on consult. She was placed on statin, aspirin. She was previously on Eliquis for chronic A-fib which she had taken herself off because she was concerned about the side effects, Cost and ecchymosis. She also has a history of severe carotid stenosis which she states she had previously discussed surgery for with Dr. Pena. She had a carotid ultrasound that did show severe right sided carotid stenosis. A repeat CT brain was negative. She refused an MRI/MRA, and CTA of the head and neck. She was recently started on amlodipine for hypertension and she reports dizziness; tremors and weakness with amlodipine. She even attributes her strokelike symptoms to amlodipine. She was admitted about a week ago for pneumonia and a kidney stone. She had a successful lithotripsy with passing of stones. And she has completed her antibiotics for pneumonia. She lives alone, was previously completely functionally independent and is admitted to the rehab unit in order to restore her previous level of functional independence. She takes a baby aspirin every day. She took her baby aspirin on the day of admission. per admit h&p:The patient is a 82 year old F with a significant history of sarcoidosis; A. fib, hypertension and previous stroke who presents with strokelike symptoms that started a few hours before her admission. Reportedly on the day of admission patient fell at about 12 noon; and about 5 PM. Each time she found it difficult to get up but she eventually got up. She attributes her falling to her legs giving up. She had another fall after 5:00pm. With this last fall, she was in a chair and the whole chair and herself rolled over. A neighbor checked on her and found that patient was having left-sided weakness. Past Medical History Past Medical History (Chronic Problems): Chronic Problems Hypertension (Chronic) Hypertension, accelerated (Chronic) Carotid stenosis (Chronic) Stroke/cerebrovascular accident (Chronic) Allergies adhesive Adverse Reaction (Verified 07/13/18 18:56) Rash Home Medications: Ambulatory Orders Medication Instructions Recorded Aspirin 81 mg PO DAILY 07/04/18 Acetaminophen [Tylenol Tablet] 325 mg PO Q4H PRN PRN tablet 07/14/18 Amlodipine [Norvasc] 10 mg PO DAILY 07/14/18 Atorvastatin Calcium [Lipitor] 40 mg PO QHS 07/14/18 Surgical History: hysterectomy, tonsillectomy Psychiatric History: No pertinent psych hx IMAGING ANALYST History: No pertinent IMAGING ANALYST history Smoking Status: Never smoker Tobacco Use: Non-smoker - *Family History Maternal History Items: - - No stroke Paternal History Items: - - No stroke Review of Systems Constitutional: Denies: Chills, Fever, Weight Change HEENT: Denies: Head Aches, Sinus Congestion, Sinus Drainage Cardiovascular: Denies: Chest Pain, Palpitations Respiratory: Denies: Cough, Shortness of breath at rest, Sputum production Gastrointestinal: Denies: Abdominal Pain, Nausea, Vomiting Genitourinary: Denies: Dysuria Musculoskeletal: Denies: Joint Pain, Joint Tenderness Skin: Denies: Rash, Wounds Neurological: Denies: Numbness, Tingling, Focal weakness Psychiatric: Denies: Anxiety, Depression, Homicidal Ideations, Suicidal Ideations Hematologic/ Lymphatic: Denies: Easy Bruising, Easy Bleeding VTE Information - Inpt Only VTE Present on Admission: No VTE Mechan Device Prophylaxis: SCD's VTE Pharm Prophylaxis ordered?: Yes - Physical Exam General: Alert, Oriented x3, Cooperative HEENT: Atraumatic, PERRLA, EOMI, Normocephalic Neck: Supple, No JVD, Negative Carotid Bruits Lungs: Clear to auscultation, Normal air movement Cardiovascular: Regular rate, No murmurs Abdomen: Bowel Sounds Present, Soft, Non Tender Extremities: No edema, Capillary Refill Less than 3 Seconds Skin: No rashes, No breakdown Musculoskeletal: No Tenderness to Palpation of Joints or Extremities Neurological: Cranial nerves II-XII grossly intact Psych/Mental Status: Normal Affect, Appropriate, Alert and oriented to time, place, person, mood and affect Vital Signs Temp Pulse Resp BP Pulse Ox 98.0 F 98 17 123/75 H 97 07/15/18 08:46 07/15/18 08:46 07/15/18 08:46 07/15/18 08:46 07/15/18 08:46 Oxygen Delivery Method Room Air Weight: 58.4 kg Body Mass Index (BMI) 22.1 Finger Stick Blood Glucose 113 Laboratory Tests Past 24 Hrs 07/15/18 07/15/18 07/15/18 05:00 05:00 09:00 WBC 7.2 RBC 5.15 Hgb 15.9 H Hct 46.3 MCV 89.9 MCH 30.9 MCHC 34.3 RDW 13.4 RDW Differential 44.0 H Plt Count 173 MPV 12.0 PT 13.9 INR 1.1 Sodium 143 Potassium 4.1 Chloride 107 Carbon Dioxide 28.0 Anion Gap 8 BUN 15 Creatinine 0.94 Estim Creat Clear Calc 40.53 Est GFR (MDRD) Af Amer 74 Est GFR (MDRD) Non-Af 61 BUN/Creatinine Ratio 16.0 Glucose 84 Calcium 8.8 Active Medications Acetaminophen (Tylenol) 325 mg PO Q4H PRN PRN PRN Reason: PAIN Last Admin: 07/14/18 22:40 Dose: 325 mg Amlodipine Besylate (Norvasc) 10 mg PO DAILY [facility] Last Admin: 07/15/18 08:49 Dose: Not Given Aspirin (Aspirin, Baby) 81 mg PO DAILY@0800 [facility] Last Admin: 07/15/18 08:47 Dose: 81 mg Atorvastatin Calcium (Lipitor) 40 mg PO QHS [facility] Last Admin: 07/14/18 22:40 Dose: 40 mg Bisacodyl (Dulcolax) 10 mg RECTAL .PRN X 1 PRN PRN Reason: Constipation Enoxaparin Sodium (Lovenox) 40 mg SC DAILY@0600 [facility] Lorazepam (Ativan) 0.5 mg PO QHS PRN PRN PRN Reason: Insomnia Magnesium Hydroxide (Milk Of Magnesia) 30 ml PO .PRN X 1 PRN PRN Reason: Constipation Senna/Docusate Sodium (Senokot-S, Mara-Colace) 2 tablet PO BID [facility] Last Admin: 07/15/18 08:50 Dose: Not Given Warfarin Sodium (Coumadin (Pbkc)) 5 mg PO DAILY@1700 [facility] Assessment/Plan All Active Problems Pneumonia (Resolved) Renal colic on right side (Resolved) Kidney stone on right side (Resolved) Acute CVA (cerebrovascular accident) (Acute) Atrial flutter (Acute) 82 year old Female who was admitted to the rehab unit for rehabilitation. She has a PMH: CVA, chronic atrial fibrillation-patient took herself off of blood thinner, hypertension, a history of carotid stenosis and is a patient of Dr. Pena, she presented to the emergency room with acute onset of left upper extremity weakness, on 07/13/18. She a CT of the brain which was negative for acute process. She was admitted to the PCU for acute CVA with neurology on consult. She was placed on statin, aspirin. She was previously on Eliquis for chronic A-fib which she had taken herself off because she was concerned about the side effects, Cost and ecchymosis. She also has a history of severe carotid stenosis which she states she had previously discussed surgery for with Dr. Pena. She had a carotid ultrasound that did show severe right sided carotid stenosis. A repeat CT brain was negative. She refused an MRI/MRA, and CTA of the head and neck. She was recently started on amlodipine for hypertension and she reports dizziness; tremors and weakness with amlodipine. She even attributes her strokelike symptoms to amlodipine. Plan: - Physical therapy for gait and balance - Occupational Therapy for ADLs - Speech therapy - As needed analgesics - Bowel protocol - Stroke prevention on ASA, Statin and Lovenox, will transition to Coumadin on 07/18, once therapeutic will d/c the ASA, and Lovenox - DVT prophylaxis: SCDs, ASA, Lovenox - Hypertension: Stable with good control, continue Norvasc Keep BP < 130/80 mmHg - Echo cardiogram => pending results - Check LDL and Hba1c - Goal Hba1c <7%
[2018-07-15 21:24] VITALS: BP 139/85; PULSE 86; RESP 17; TEMP 36.4; O2SAT 98
[2018-07-15] MEDS: Atorvastatin Calcium 40 MG Tablet PO (21:26)
[2018-07-16] MEDS: Enoxaparin 40 MG/0.4 ML Syringe SC (05:44)
[2018-07-16 07:27] VITALS: BP 137/73; PULSE 78; RESP 18; TEMP 36.7; O2SAT 100
[2018-07-16 07:44] VITALS: O2SAT 95
[2018-07-16] MEDS: Aspirin 81 MG TAB.CHEW PO (07:50)
[2018-07-16 19:17] VITALS: BP 124/70; PULSE 93; RESP 20; TEMP 37.2; O2SAT 95
[2018-07-16] MEDS: Atorvastatin Calcium 40 MG Tablet PO (19:30)
[2018-07-17] MEDS: Enoxaparin 40 MG/0.4 ML Syringe SC (05:56)
[2018-07-17 07:33] LABS: International Normalized Ratio 1.1; Prothrombin Time (Protime)PT. 13.8 SECONDS (11.7-14.9)
[2018-07-17 09:00] VITALS: O2SAT 98
[2018-07-17 09:20] VITALS: BP 144/82; PULSE 78; RESP 18; TEMP 36.9; O2SAT 98
[2018-07-17] MEDS: Aspirin 81 MG TAB.CHEW PO (09:35)
--- NOTE | 2018-07-17 10:13 | NURSING ---
pt refused scheduled norvasc this AM. Education provided to pt with with ill effect. Will continue to monitor.
--- NOTE | 2018-07-17 10:16 | NURSING ---
pt ambulated throughout halls using quad stevenson and gait belt with staff assist. Pt tolerated well.
[2018-07-17 19:58] VITALS: BP 113/76; PULSE 93; RESP 16; TEMP 36.5; O2SAT 96
[2018-07-17] MEDS: Acetaminophen 325 MG Tablet PO (21:18)
[2018-07-17] MEDS: Atorvastatin Calcium 40 MG Tablet PO (21:49)
[2018-07-18] MEDS: Enoxaparin 40 MG/0.4 ML Syringe SC (06:35)
[2018-07-18 07:34] LABS: Prothrombin Time (Protime)PT. 13.4 SECONDS (11.7-14.9)
[2018-07-18] MEDS: Aspirin 81 MG TAB.CHEW PO (08:16)
[2018-07-18 10:00] VITALS: BP 151/92; PULSE 76; RESP 18; TEMP 36.6; O2SAT 97
--- NOTE | 2018-07-18 10:37 | PCM.PN.NEU ---
Subjective: Patient seen and examined. Discussed her starting Eliquis versus Coumadin, she does not wish to have weekly blood draws and feels for terminal operations manager use Eliquis will be a better opinion. Discussed drug plans that are available to assist with cost of medication, and side affects of the medication. She is in agreement with starting the Eliquis today. Patient has regained use of her left hand, she has about 4/5 strength in that arm at present time, with good drum sander setter strength of 4/5. No issues with GI/. She did refuse Speech therapy, states she feels she does not need it, that she is not having any cognitive issues. - Physical Exam General: Alert, Oriented x3, Cooperative HEENT: Atraumatic, PERRLA, EOMI, Normocephalic Neck: Supple, No JVD, Negative Carotid Bruits Lungs: Clear to auscultation, Normal air movement Cardiovascular: Regular rate, No murmurs Abdomen: Bowel Sounds Present, Soft, Non Tender Extremities: No edema, Capillary Refill Less than 3 Seconds Skin: No rashes, No breakdown Musculoskeletal: No Tenderness to Palpation of Joints or Extremities Neurological: Cranial nerves II-XII grossly intact Psych/Mental Status: Normal Affect, Appropriate, Alert and oriented to time, place, person, mood and affect Vital Signs Temp Pulse Resp BP Pulse Ox 97.7 F L 93 16 113/76 96 07/17/18 19:58 07/17/18 19:58 07/17/18 19:58 07/17/18 19:58 07/17/18 19:58 Oxygen Delivery Method Room Air Weight: 58.4 kg Body Mass Index (BMI) 22.1 Finger Stick Blood Glucose 113 Intake and Output for Last 24 Hours 07/16/18 07/17/18 07/18/18 23:59 23:59 23:59 Intake Total 360 / 360 360 / 360 Balance 360 / 360 360 / 360 Laboratory Tests Past 24 Hrs 07/18/18 06:50 PT 13.4 INR 1.0 Active Medications Acetaminophen (Tylenol) 325 mg PO Q4H PRN PRN PRN Reason: PAIN Last Admin: 07/17/18 21:18 Dose: 325 mg Amlodipine Besylate (Norvasc) 10 mg PO DAILY [facility] Last Admin: 07/18/18 08:17 Dose: Not Given Aspirin (Aspirin, Baby) 81 mg PO DAILY@0800 [facility] Last Admin: 07/18/18 08:16 Dose: 81 mg Atorvastatin Calcium (Lipitor) 40 mg PO QHS [facility] Last Admin: 07/17/18 21:49 Dose: 40 mg Bisacodyl (Dulcolax) 10 mg RECTAL .PRN X 1 PRN PRN Reason: Constipation Enoxaparin Sodium (Lovenox) 40 mg SC DAILY@0600 [facility] Last Admin: 07/18/18 06:35 Dose: 40 mg Lorazepam (Ativan) 0.5 mg PO QHS PRN PRN PRN Reason: Insomnia Magnesium Hydroxide (Milk Of Magnesia) 30 ml PO .PRN X 1 PRN PRN Reason: Constipation Senna/Docusate Sodium (Senokot-S, Mara-Colace) 2 tablet PO BID [facility] Last Admin: 07/18/18 08:17 Dose: Not Given Warfarin Sodium (Coumadin (Pbkc)) 5 mg PO DAILY@1700 [facility] Medical Necessity - Tobacco Use Smoking Status: Never smoker Tobacco Use: Non-smoker Assessment/Plan All Active Problems Pneumonia (Resolved) Renal colic on right side (Resolved) Kidney stone on right side (Resolved) Acute CVA (cerebrovascular accident) (Acute) Atrial flutter (Acute) 82 year old Female who was admitted to the rehab unit for rehabilitation. She has a PMH: CVA, chronic atrial fibrillation-patient took herself off of blood thinner, hypertension, a history of carotid stenosis and is a patient of Dr. Pena, she presented to the emergency room with acute onset of left upper extremity weakness, on 07/13/18. She a CT of the brain which was negative for acute process. She was admitted to the PCU for acute CVA with neurology on consult. She was placed on statin, aspirin. She was previously on Eliquis for chronic A-fib which she had taken herself off because she was concerned about the side effects, Cost and ecchymosis. She also has a history of severe carotid stenosis which she states she had previously discussed surgery for with Dr. Pena. She had a carotid ultrasound that did show severe right sided carotid stenosis. A repeat CT brain was negative. She refused an MRI/MRA, and CTA of the head and neck. She was recently started on amlodipine for hypertension and she reports dizziness; tremors and weakness with amlodipine. She even attributes her strokelike symptoms to amlodipine. Plan: - Physical therapy for gait and balance - Occupational Therapy for ADLs - Speech therapy - As needed analgesics - Bowel protocol - Stroke prevention on ASA, Statin and Lovenox, will transition to Coumadin on 07/18, once therapeutic will d/c the ASA, and Lovenox, Patient wishes to try Eliquis instead of Coumadin at this time will start 5mg BID, once medication is started will D/C the ASA. - DVT prophylaxis: SCDs, ASA, Lovenox - Hypertension: Stable with good control, continue Norvasc Keep BP < 130/80 mmHg - Echo cardiogram => pending results - Check LDL and Hba1c - Goal Hba1c <7%
--- NOTE | 2018-07-18 10:44 | PN.NEURO_ITS ---
Subjective: Patient seen and examined. Discussed her starting Eliquis versus Coumadin, she does not wish to have weekly blood draws and feels for termite treater use Eliquis will be a better opinion. Discussed drug plans that are available to assist with cost of medication, and side affects of the medication. She is in agreement with starting the Eliquis today. Patient has regained use of her left hand, she has about 4/5 strength in that arm at present time, with good picture booker strength of 4/5. No issues with GI/. She did refuse Speech therapy, states she feels she does not need it, that she is not having any cognitive issues. - Physical Exam General: Alert, Oriented x3, Cooperative HEENT: Atraumatic, PERRLA, EOMI, Normocephalic Neck: Supple, No JVD, Negative Carotid Bruits Lungs: Clear to auscultation, Normal air movement Cardiovascular: Regular rate, No murmurs Abdomen: Bowel Sounds Present, Soft, Non Tender Extremities: No edema, Capillary Refill Less than 3 Seconds Skin: No rashes, No breakdown Musculoskeletal: No Tenderness to Palpation of Joints or Extremities Neurological: Cranial nerves II-XII grossly intact Psych/Mental Status: Normal Affect, Appropriate, Alert and oriented to time, place, person, mood and affect Vital Signs Temp Pulse Resp BP Pulse Ox 97.7 F L 93 16 113/76 96 07/17/18 19:58 07/17/18 19:58 07/17/18 19:58 07/17/18 19:58 07/17/18 19:58 Oxygen Delivery Method Room Air Weight: 58.4 kg Body Mass Index (BMI) 22.1 Finger Stick Blood Glucose 113 Intake and Output for Last 24 Hours 07/16/18 07/17/18 07/18/18 23:59 23:59 23:59 Intake Total 360 / 360 360 / 360 Balance 360 / 360 360 / 360 Laboratory Tests Past 24 Hrs 07/18/18 06:50 PT 13.4 INR 1.0 Active Medications Acetaminophen (Tylenol) 325 mg PO Q4H PRN PRN PRN Reason: PAIN Last Admin: 07/17/18 21:18 Dose: 325 mg Amlodipine Besylate (Norvasc) 10 mg PO DAILY [facility] Last Admin: 07/18/18 08:17 Dose: Not Given Aspirin (Aspirin, Baby) 81 mg PO DAILY@0800 [facility] Last Admin: 07/18/18 08:16 Dose: 81 mg Atorvastatin Calcium (Lipitor) 40 mg PO QHS [facility] Last Admin: 07/17/18 21:49 Dose: 40 mg Bisacodyl (Dulcolax) 10 mg RECTAL .PRN X 1 PRN PRN Reason: Constipation Enoxaparin Sodium (Lovenox) 40 mg SC DAILY@0600 [facility] Last Admin: 07/18/18 06:35 Dose: 40 mg Lorazepam (Ativan) 0.5 mg PO QHS PRN PRN PRN Reason: Insomnia Magnesium Hydroxide (Milk Of Magnesia) 30 ml PO .PRN X 1 PRN PRN Reason: Constipation Senna/Docusate Sodium (Senokot-S, Mara-Colace) 2 tablet PO BID [facility] Last Admin: 07/18/18 08:17 Dose: Not Given Warfarin Sodium (Coumadin (Pbkc)) 5 mg PO DAILY@1700 [facility] Medical Necessity - Tobacco Use Smoking Status: Never smoker Tobacco Use: Non-smoker Assessment/Plan All Active Problems Pneumonia (Resolved) Renal colic on right side (Resolved) Kidney stone on right side (Resolved) Acute CVA (cerebrovascular accident) (Acute) Atrial flutter (Acute) 82 year old Female who was admitted to the rehab unit for rehabilitation. She has a PMH: CVA, chronic atrial fibrillation-patient took herself off of blood thinner, hypertension, a history of carotid stenosis and is a patient of Dr. Pena, she presented to the emergency room with acute onset of left upper extremity weakness, on 07/13/18. She a CT of the brain which was negative for acute process. She was admitted to the PCU for acute CVA with neurology on consult. She was placed on statin, aspirin. She was previously on Eliquis for chronic A-fib which she had taken herself off because she was concerned about the side effects, Cost and ecchymosis. She also has a history of severe carotid stenosis which she states she had previously discussed surgery for with Dr. Pena. She had a carotid ultrasound that did show severe right sided carotid stenosis. A repeat CT brain was negative. She refused an MRI/MRA, and CTA of the head and neck. She was recently started on amlodipine for hypertension and she reports dizziness; tremors and weakness with amlodipine. She even attributes her strokelike symptoms to amlodipine. Plan: - Physical therapy for gait and balance - Occupational Therapy for ADLs - Speech therapy - As needed analgesics - Bowel protocol - Stroke prevention on ASA, Statin and Lovenox, will transition to Coumadin on 07/18, once therapeutic will d/c the ASA, and Lovenox, Patient wishes to try Eliquis instead of Coumadin at this time will start 5mg BID, once medication is started will D/C the ASA. - DVT prophylaxis: SCDs, ASA, Lovenox - Hypertension: Stable with good control, continue Norvasc Keep BP < 130/80 mmHg - Echo cardiogram => pending results - Check LDL and Hba1c - Goal Hba1c <7%
[2018-07-18 10:46] VITALS: O2SAT 98
--- NOTE | 2018-07-18 15:34 | CASEMGMT ---
Social Work Spoke with patient in room. Patient expressing concerns with patient son, Rosalino and sister Gauri taking over my life. This health social work professor confirming for patient that patient is own POA and able to make own decisions at this time and that a doctors has not determined that patient is unable to make own choices. This health social work professor communicating that all decisions will be made by patient in regards to patient care and discharge plan. Patient thanking this health social work professor and glad to hear that this is how this works. Patient is reporting that this health social work professor is able to speak with patient daughters Lizette and Mikki. Telephone call to Lizette. Lizette aware of family situation and thanking this health social work professor for the call. Support given. Will continue to follow. Margot TRAN, PAIRER [employer]
[2018-07-18 20:00] VITALS: BP 120/77; PULSE 96; RESP 18; TEMP 36.7; O2SAT 98
[2018-07-18] MEDS: APIXABAN 5 MG TABLET PO (21:12)
[2018-07-18] MEDS: Atorvastatin Calcium 40 MG Tablet PO (21:12)
[2018-07-19] MEDS: amLODIPine 10 MG Tablet PO (08:14)
[2018-07-19] MEDS: Aspirin 81 MG TAB.CHEW PO (08:14)
[2018-07-19] MEDS: APIXABAN 5 MG TABLET PO ×2 (08:14→21:43)
[2018-07-19] MEDS: Senna/Docusate Sodium 1 Tablet 2 TABLET PO (08:15)
[2018-07-19 08:29] VITALS: BP 137/75; PULSE 93; RESP 20; TEMP 36.5; O2SAT 95
--- NOTE | 2018-07-19 11:47 | PCM.PN.NEU ---
Subjective: Patient seen, no new complaints. Started Eliquis 07/18 for A-Fib, tolerating medication. Tolerating therapy, no issues with GI/. - Physical Exam General: Alert, Oriented x3, Cooperative HEENT: Atraumatic, PERRLA, EOMI, Normocephalic Neck: Supple, No JVD, Negative Carotid Bruits Lungs: Clear to auscultation, Normal air movement Cardiovascular: Regular rate, No murmurs Abdomen: Bowel Sounds Present, Soft, Non Tender Extremities: No edema, Capillary Refill Less than 3 Seconds Skin: No rashes, No breakdown Musculoskeletal: No Tenderness to Palpation of Joints or Extremities Neurological: Cranial nerves II-XII grossly intact Psych/Mental Status: Normal Affect, Appropriate, Alert and oriented to time, place, person, mood and affect Vital Signs Temp Pulse Resp BP Pulse Ox 97.7 F L 93 20 H 137/75 H 95 07/19/18 08:29 07/19/18 08:29 07/19/18 08:29 07/19/18 08:29 07/19/18 08:29 Oxygen Delivery Method Room Air Weight: 58.4 kg Body Mass Index (BMI) 22.1 Finger Stick Blood Glucose 113 Intake and Output for Last 24 Hours 07/17/18 07/18/18 07/19/18 23:59 23:59 23:59 Intake Total 720 / 720 Balance 720 / 720 Active Medications Acetaminophen (Tylenol) 325 mg PO Q4H PRN PRN PRN Reason: PAIN Last Admin: 07/17/18 21:18 Dose: 325 mg Amlodipine Besylate (Norvasc) 10 mg PO DAILY [facility] Last Admin: 07/19/18 08:14 Dose: 10 mg Apixaban (Eliquis) 5 mg PO BID [facility] Last Admin: 07/19/18 08:14 Dose: 5 mg Aspirin (Aspirin, Baby) 81 mg PO DAILY@0800 [facility] Last Admin: 07/19/18 08:14 Dose: 81 mg Atorvastatin Calcium (Lipitor) 40 mg PO QHS [facility] Last Admin: 07/18/18 21:12 Dose: 40 mg Bisacodyl (Dulcolax) 10 mg RECTAL .PRN X 1 PRN PRN Reason: Constipation Lorazepam (Ativan) 0.5 mg PO QHS PRN PRN PRN Reason: Insomnia Magnesium Hydroxide (Milk Of Magnesia) 30 ml PO .PRN X 1 PRN PRN Reason: Constipation Melatonin (Melatonin) 3 mg PO QHS PRN PRN Reason: INSOMNIA Senna/Docusate Sodium (Senokot-S, Mara-Colace) 2 tablet PO BID [facility] Last Admin: 07/19/18 08:15 Dose: 1 tablet Medical Necessity - Tobacco Use Smoking Status: Never smoker Tobacco Use: Non-smoker Assessment/Plan All Active Problems Pneumonia (Resolved) Renal colic on right side (Resolved) Kidney stone on right side (Resolved) Acute CVA (cerebrovascular accident) (Acute) Atrial flutter (Acute) 82 year old Female who was admitted to the rehab unit for rehabilitation. She has a PMH: CVA, chronic atrial fibrillation-patient took herself off of blood thinner, hypertension, a history of carotid stenosis and is a patient of Dr. Pena, she presented to the emergency room with acute onset of left upper extremity weakness, on 07/13/18. She a CT of the brain which was negative for acute process. She was admitted to the PCU for acute CVA with neurology on consult. She was placed on statin, aspirin. She was previously on Eliquis for chronic A-fib which she had taken herself off because she was concerned about the side effects, Cost and ecchymosis. She also has a history of severe carotid stenosis which she states she had previously discussed surgery for with Dr. Pena. She had a carotid ultrasound that did show severe right sided carotid stenosis. A repeat CT brain was negative. She refused an MRI/MRA, and CTA of the head and neck. She was recently started on amlodipine for hypertension and she reports dizziness; tremors and weakness with amlodipine. She even attributes her strokelike symptoms to amlodipine. Plan: - Physical therapy for gait and balance - Occupational Therapy for ADLs - Speech therapy - As needed analgesics - Bowel protocol - Stroke prevention on ASA, Statin and Lovenox, will transition to Coumadin on 07/18, once therapeutic will d/c the ASA, and Lovenox, Patient wishes to try Eliquis instead of Coumadin at this time will start 5mg BID, once medication is started will D/C the ASA. - DVT prophylaxis: SCDs, ASA, Lovenox - Hypertension: Stable with good control, continue Norvasc Keep BP < 130/80 mmHg - Echo cardiogram => pending results - Check LDL and Hba1c - Goal Hba1c <7%
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
[2018-07-19 20:42] VITALS: BP 130/82; PULSE 88; RESP 18; TEMP 36.6; O2SAT 98
--- NOTE | 2018-07-19 20:43 | NURSING ---
pt walked 2 times around unit with nurse. Gait belt in place, sling applied to left arm, and cane used.
[2018-07-19 21:21] VITALS: BMI 22.1
[2018-07-19] MEDS: Atorvastatin Calcium 40 MG Tablet PO (21:43)
--- NOTE | 2018-07-19 22:57 | NURSING ---
Pt anxious re:family interference. Pt expressed concerns about family speaking on her behalf when family attends Team Conference coming up . Pt stated she would like someone in authority to set the tone for the meeting on to keep the meeting about what the pt would like to see happen upon discharge rather than the family trying to take over her finances.
[2018-07-20 07:06] VITALS: BP 141/94; PULSE 81; RESP 16; TEMP 36.3; O2SAT 98
[2018-07-20] MEDS: APIXABAN 5 MG TABLET PO ×2 (08:01→20:30)
[2018-07-20] MEDS: Aspirin 81 MG TAB.CHEW PO (08:01)
[2018-07-20] MEDS: Senna/Docusate Sodium 1 Tablet 2 TABLET PO (08:01)
[2018-07-20] MEDS: amLODIPine 10 MG Tablet PO (08:03)
--- NOTE | 2018-07-20 10:09 | PCM.PN.NEU ---
Subjective: Patient seen and examined. No new complaints. Tolerating therapy. She is regaining movement in her left hand, she is able to wiggle her fingers and touch her thumb to each finger. She is unable to raise and hold her arm straight. No issues with GI/. - Physical Exam General: Alert, Oriented x3, Cooperative HEENT: Atraumatic, PERRLA, EOMI, Normocephalic Neck: Supple, No JVD, Negative Carotid Bruits Lungs: Clear to auscultation, Normal air movement Cardiovascular: Regular rate, No murmurs Abdomen: Bowel Sounds Present, Soft, Non Tender Extremities: No edema, Capillary Refill Less than 3 Seconds Skin: No rashes, No breakdown Musculoskeletal: No Tenderness to Palpation of Joints or Extremities Neurological: Cranial nerves II-XII grossly intact Psych/Mental Status: Normal Affect, Appropriate, Alert and oriented to time, place, person, mood and affect Vital Signs Temp Pulse Resp BP Pulse Ox 97.4 F L 81 16 141/94 H 98 07/20/18 07:06 07/20/18 07:06 07/20/18 07:06 07/20/18 07:06 07/20/18 07:06 Oxygen Delivery Method Mechanical Ventilator Weight: 55.7 kg Body Mass Index (BMI) 22.1 Finger Stick Blood Glucose 113 Intake and Output for Last 24 Hours 07/18/18 07/19/18 07/20/18 23:59 23:59 23:59 Intake Total 720 / 720 600 / 600 360 / 360 Balance 720 / 720 600 / 600 360 / 360 Active Medications Acetaminophen (Tylenol) 325 mg PO Q4H PRN PRN PRN Reason: PAIN Last Admin: 07/17/18 21:18 Dose: 325 mg Amlodipine Besylate (Norvasc) 10 mg PO DAILY [facility] Last Admin: 07/20/18 08:03 Dose: 10 mg Apixaban (Eliquis) 5 mg PO BID [facility] Last Admin: 07/20/18 08:01 Dose: 5 mg Aspirin (Aspirin, Baby) 81 mg PO DAILY@0800 [facility] Last Admin: 07/20/18 08:01 Dose: 81 mg Atorvastatin Calcium (Lipitor) 40 mg PO QHS [facility] Last Admin: 07/19/18 21:43 Dose: 40 mg Bisacodyl (Dulcolax) 10 mg RECTAL .PRN X 1 PRN PRN Reason: Constipation Lorazepam (Ativan) 0.5 mg PO QHS PRN PRN PRN Reason: Insomnia Magnesium Hydroxide (Milk Of Magnesia) 30 ml PO .PRN X 1 PRN PRN Reason: Constipation Melatonin (Melatonin) 3 mg PO QHS PRN PRN Reason: INSOMNIA Senna/Docusate Sodium (Senokot-S, Mara-Colace) 2 tablet PO BID [facility] Last Admin: 07/20/18 08:01 Dose: 1 tablet Medical Necessity - Tobacco Use Smoking Status: Never smoker Tobacco Use: Non-smoker Assessment/Plan All Active Problems Pneumonia (Resolved) Renal colic on right side (Resolved) Kidney stone on right side (Resolved) Acute CVA (cerebrovascular accident) (Acute) Atrial flutter (Acute) 82 year old Female who was admitted to the rehab unit for rehabilitation. She has a PMH: CVA, chronic atrial fibrillation-patient took herself off of blood thinner, hypertension, a history of carotid stenosis and is a patient of Dr. Pena, she presented to the emergency room with acute onset of left upper extremity weakness, on 07/13/18. She a CT of the brain which was negative for acute process. She was admitted to the PCU for acute CVA with neurology on consult. She was placed on statin, aspirin. She was previously on Eliquis for chronic A-fib which she had taken herself off because she was concerned about the side effects, Cost and ecchymosis. She also has a history of severe carotid stenosis which she states she had previously discussed surgery for with Dr. Pena. She had a carotid ultrasound that did show severe right sided carotid stenosis. A repeat CT brain was negative. She refused an MRI/MRA, and CTA of the head and neck. She was recently started on amlodipine for hypertension and she reports dizziness; tremors and weakness with amlodipine. She even attributes her strokelike symptoms to amlodipine. Plan: - Physical therapy for gait and balance - Occupational Therapy for ADLs - Speech therapy - As needed analgesics - Bowel protocol - Stroke prevention on ASA, Statin and Lovenox, will transition to Coumadin on 07/18, once therapeutic will d/c the ASA, and Lovenox, Patient wishes to try Eliquis instead of Coumadin at this time will start 5mg BID, once medication is started will D/C the ASA. - DVT prophylaxis: SCDs, ASA, Lovenox - Hypertension: Stable with good control, continue Norvasc Keep BP < 130/80 mmHg - Echo cardiogram => pending results - Check LDL and Hba1c - Goal Hba1c <7%
[2018-07-20 17:00] VITALS: BMI 22.1
[2018-07-20] MEDS: Acetaminophen 325 MG Tablet PO (20:29)
[2018-07-20] MEDS: Atorvastatin Calcium 40 MG Tablet PO (20:30)
[2018-07-20 20:46] VITALS: BP 114/77; PULSE 87; RESP 17; TEMP 36.6; O2SAT 96
[2018-07-20 21:15] VITALS: BMI 22.1
[2018-07-20] MEDS: MELATONIN 3 MG TABLET PO (21:56)
--- NOTE | 2018-07-21 01:39 | NURSING ---
Addendum entered by Yane Kimbrough 07/21/18 01:42: Gait belt used, sling applied to left arm, and cane used. Pt tolerated well. Original Note: Pt ambulated around the unit twice this hs.
--- NOTE | 2018-07-21 02:23 | NURSING ---
Pt used call light to alert staff that pt feels like she has the heebie-jeebies crawling on her back. Pt requested lotion and back rub for relaxation. RN applied Aloe Aurora to back and massaged into back. Pt repositioned in bed by staff.
[2018-07-21 07:35] VITALS: BP 152/92; PULSE 91; RESP 20; TEMP 36.7; O2SAT 95
[2018-07-21] MEDS: Aspirin 81 MG TAB.CHEW PO (08:01)
[2018-07-21] MEDS: amLODIPine 10 MG Tablet PO (08:02)
[2018-07-21] MEDS: Senna/Docusate Sodium 1 Tablet 2 TABLET PO ×2 (08:02→22:24)
[2018-07-21] MEDS: APIXABAN 5 MG TABLET PO (08:05)
--- NOTE | 2018-07-21 09:00 | CASEMGMT ---
Team meeting held. Patient present as well as patient family. No discharge date set at this time. Patient to continue with further care and treatment on the Inpatient Rehab Unit. Patient approved 24 Medicare Days. Patient plans to discharge to home with family for support at time of discharge. Plan is to re-team patient next week. Support given. Will continue to follow. Margot TRAN, [employer] HISTORY PROFESSOR
--- NOTE | 2018-07-21 10:37 | PCM.PN.NEU ---
Subjective: Staffed in team meeting. Family at bedside, questions answered. With Physical therapy, She is stand by assist for transfers, getting in and out of bed and coming to a stand from sitting. She is contact guard for walking with a straight cane, she went off the unit and walked on different surfaces in the community, up and down a ramp, on the grass and up and down curbs using a straight cane. With Occupational therapy, she is stand by assist for grooming and bathing. she is minimal assist for upper body dressing 2/2 decreased movement in her left arm. Therapy feels she is making good progress. With Nursing, her blood pressure is slight elevated today, but usually it is stable. She has good compliance with medication. Only issue is with sleeping, she is not sleeping during the night, will start her on Melatonin at bed time. Will re-team her again next 07/28. - Physical Exam General: Alert, Oriented x3, Cooperative HEENT: Atraumatic, PERRLA, EOMI, Normocephalic Neck: Supple, No JVD, Negative Carotid Bruits Lungs: Clear to auscultation, Normal air movement Cardiovascular: Regular rate, No murmurs Abdomen: Bowel Sounds Present, Soft, Non Tender Extremities: No edema, Capillary Refill Less than 3 Seconds Skin: No rashes, No breakdown Musculoskeletal: No Tenderness to Palpation of Joints or Extremities Neurological: Cranial nerves II-XII grossly intact Psych/Mental Status: Normal Affect, Appropriate, Alert and oriented to time, place, person, mood and affect Vital Signs Temp Pulse Resp BP Pulse Ox 98.0 F 91 20 H 152/92 H 95 07/21/18 07:35 07/21/18 07:35 07/21/18 07:35 07/21/18 07:35 07/21/18 07:35 Oxygen Delivery Method Room Air Weight: 55.7 kg Body Mass Index (BMI) 22.1 Finger Stick Blood Glucose 113 Intake and Output for Last 24 Hours 07/19/18 07/20/18 07/21/18 23:59 23:59 23:59 Intake Total 600 / 600 600 / 600 Balance 600 / 600 600 / 600 Active Medications Acetaminophen (Tylenol) 325 mg PO Q4H PRN PRN PRN Reason: PAIN Last Admin: 07/20/18 20:29 Dose: 325 mg Amlodipine Besylate (Norvasc) 10 mg PO DAILY [facility] Last Admin: 07/21/18 08:02 Dose: 10 mg Apixaban (Eliquis) 5 mg PO BID [facility] Last Admin: 07/21/18 08:05 Dose: 5 mg Aspirin (Aspirin, Baby) 81 mg PO DAILY@0800 [facility] Last Admin: 07/21/18 08:01 Dose: 81 mg Atorvastatin Calcium (Lipitor) 40 mg PO QHS [facility] Last Admin: 07/20/18 20:30 Dose: 40 mg Bisacodyl (Dulcolax) 10 mg RECTAL .PRN X 1 PRN PRN Reason: Constipation Lorazepam (Ativan) 0.5 mg PO QHS PRN PRN PRN Reason: Insomnia Magnesium Hydroxide (Milk Of Magnesia) 30 ml PO .PRN X 1 PRN PRN Reason: Constipation Melatonin (Melatonin) 3 mg PO QHS PRN PRN Reason: INSOMNIA Last Admin: 07/20/18 21:56 Dose: 3 mg Senna/Docusate Sodium (Senokot-S, Mara-Colace) 2 tablet PO BID [facility] Last Admin: 07/21/18 08:02 Dose: 1 tablet Medical Necessity - Tobacco Use Smoking Status: Never smoker Tobacco Use: Non-smoker Assessment/Plan All Active Problems Pneumonia (Resolved) Renal colic on right side (Resolved) Kidney stone on right side (Resolved) Acute CVA (cerebrovascular accident) (Acute) Atrial flutter (Acute) 82 year old Female who was admitted to the rehab unit for rehabilitation. She has a PMH: CVA, chronic atrial fibrillation-patient took herself off of blood thinner, hypertension, a history of carotid stenosis and is a patient of Dr. Pena, she presented to the emergency room with acute onset of left upper extremity weakness, on 07/13/18. She a CT of the brain which was negative for acute process. She was admitted to the PCU for acute CVA with neurology on consult. She was placed on statin, aspirin. She was previously on Eliquis for chronic A-fib which she had taken herself off because she was concerned about the side effects, Cost and ecchymosis. She also has a history of severe carotid stenosis which she states she had previously discussed surgery for with Dr. Pena. She had a carotid ultrasound that did show severe right sided carotid stenosis. A repeat CT brain was negative. She refused an MRI/MRA, and CTA of the head and neck. She was recently started on amlodipine for hypertension and she reports dizziness; tremors and weakness with amlodipine. She even attributes her strokelike symptoms to amlodipine. Plan: - Physical therapy for gait and balance - Occupational Therapy for ADLs - Speech therapy - As needed analgesics - Bowel protocol - Stroke prevention on ASA, Statin and Lovenox, will transition to Coumadin on 07/18, once therapeutic will d/c the ASA, and Lovenox, Patient wishes to try Eliquis instead of Coumadin at this time will start 5mg BID, once medication is started will D/C the ASA. - DVT prophylaxis: SCDs, ASA, Lovenox - Hypertension: Stable with good control, continue Norvasc Keep BP < 130/80 mmHg - Echo cardiogram => pending results - Check LDL and Hba1c - Goal Hba1c <7%
--- NOTE | 2018-07-21 10:52 | PN.NEURO_ITS ---
Subjective: Staffed in team meeting. Family at bedside, questions answered. With Physical therapy, She is stand by assist for transfers, getting in and out of bed and coming to a stand from sitting. She is contact guard for walking with a straight cane, she went off the unit and walked on different surfaces in the community, up and down a ramp, on the grass and up and down curbs using a straight cane. With Occupational therapy, she is stand by assist for grooming and bathing. she is minimal assist for upper body dressing 2/2 decreased movement in her left arm. Therapy feels she is making good progress. With Nursing, her blood pressure is slight elevated today, but usually it is stable. She has good compliance with medication. Only issue is with sleeping, she is not sleeping during the night, will start her on Melatonin at bed time. Will re- team her again next 07/28. - Physical Exam General: Alert, Oriented x3, Cooperative HEENT: Atraumatic, PERRLA, EOMI, Normocephalic Neck: Supple, No JVD, Negative Carotid Bruits Lungs: Clear to auscultation, Normal air movement Cardiovascular: Regular rate, No murmurs Abdomen: Bowel Sounds Present, Soft, Non Tender Extremities: No edema, Capillary Refill Less than 3 Seconds Skin: No rashes, No breakdown Musculoskeletal: No Tenderness to Palpation of Joints or Extremities Neurological: Cranial nerves II-XII grossly intact Psych/Mental Status: Normal Affect, Appropriate, Alert and oriented to time, place, person, mood and affect Vital Signs Temp Pulse Resp BP Pulse Ox 98.0 F 91 20 H 152/92 H 95 07/21/18 07:35 07/21/18 07:35 07/21/18 07:35 07/21/18 07:35 07/21/18 07:35 Oxygen Delivery Method Room Air Weight: 55.7 kg Body Mass Index (BMI) 22.1 Finger Stick Blood Glucose 113 Intake and Output for Last 24 Hours 07/19/18 07/20/18 07/21/18 23:59 23:59 23:59 Intake Total 600 / 600 600 / 600 Balance 600 / 600 600 / 600 Active Medications Acetaminophen (Tylenol) 325 mg PO Q4H PRN PRN PRN Reason: PAIN Last Admin: 07/20/18 20:29 Dose: 325 mg Amlodipine Besylate (Norvasc) 10 mg PO DAILY [facility] Last Admin: 07/21/18 08:02 Dose: 10 mg Apixaban (Eliquis) 5 mg PO BID [facility] Last Admin: 07/21/18 08:05 Dose: 5 mg Aspirin (Aspirin, Baby) 81 mg PO DAILY@0800 [facility] Last Admin: 07/21/18 08:01 Dose: 81 mg Atorvastatin Calcium (Lipitor) 40 mg PO QHS [facility] Last Admin: 07/20/18 20:30 Dose: 40 mg Bisacodyl (Dulcolax) 10 mg RECTAL .PRN X 1 PRN PRN Reason: Constipation Lorazepam (Ativan) 0.5 mg PO QHS PRN PRN PRN Reason: Insomnia Magnesium Hydroxide (Milk Of Magnesia) 30 ml PO .PRN X 1 PRN PRN Reason: Constipation Melatonin (Melatonin) 3 mg PO QHS PRN PRN Reason: INSOMNIA Last Admin: 07/20/18 21:56 Dose: 3 mg Senna/Docusate Sodium (Senokot-S, Mara-Colace) 2 tablet PO BID [facility] Last Admin: 07/21/18 08:02 Dose: 1 tablet Medical Necessity - Tobacco Use Smoking Status: Never smoker Tobacco Use: Non-smoker Assessment/Plan All Active Problems Pneumonia (Resolved) Renal colic on right side (Resolved) Kidney stone on right side (Resolved) Acute CVA (cerebrovascular accident) (Acute) Atrial flutter (Acute) 82 year old Female who was admitted to the rehab unit for rehabilitation. She has a PMH: CVA, chronic atrial fibrillation-patient took herself off of blood thinner, hypertension, a history of carotid stenosis and is a patient of Dr. Pena, she presented to the emergency room with acute onset of left upper extremity weakness, on 07/13/18. She a CT of the brain which was negative for acute process. She was admitted to the PCU for acute CVA with neurology on consult. She was placed on statin, aspirin. She was previously on Eliquis for chronic A-fib which she had taken herself off because she was concerned about the side effects, Cost and ecchymosis. She also has a history of severe carotid stenosis which she states she had previously discussed surgery for with Dr. Pena. She had a carotid ultrasound that did show severe right sided carotid stenosis. A repeat CT brain was negative. She refused an MRI/MRA, and CTA of the head and neck. She was recently started on amlodipine for hypertension and she reports dizziness; tremors and weakness with amlodipine. She even attributes her strokelike symptoms to amlodipine. Plan: - Physical therapy for gait and balance - Occupational Therapy for ADLs - Speech therapy - As needed analgesics - Bowel protocol - Stroke prevention on ASA, Statin and Lovenox, will transition to Coumadin on 07/18, once therapeutic will d/c the ASA, and Lovenox, Patient wishes to try Eliquis instead of Coumadin at this time will start 5mg BID, once medication is started will D/C the ASA. - DVT prophylaxis: SCDs, ASA, Lovenox - Hypertension: Stable with good control, continue Norvasc Keep BP < 130/80 mmHg - Echo cardiogram => pending results - Check LDL and Hba1c - Goal Hba1c <7%
[2018-07-21 14:31] VITALS: BMI 22.1
[2018-07-21 22:00] VITALS: BP 125/70; PULSE 90; RESP 16; TEMP 36.8; O2SAT 97
[2018-07-21] MEDS: APIXABAN 2.5 MG TABLET PO (22:24)
[2018-07-21] MEDS: Atorvastatin Calcium 40 MG Tablet PO (22:24)
[2018-07-22 05:00] VITALS: BMI 22.1
[2018-07-22 08:19] VITALS: BP 136/94; PULSE 76; RESP 18; TEMP 36.4; O2SAT 99
[2018-07-22] MEDS: amLODIPine 10 MG Tablet PO (08:34)
[2018-07-22] MEDS: APIXABAN 2.5 MG TABLET PO ×2 (08:34→19:59)
[2018-07-22] MEDS: Aspirin 81 MG TAB.CHEW PO (08:35)
[2018-07-22] MEDS: Senna/Docusate Sodium 1 Tablet 2 TABLET PO (08:35)
[2018-07-22 10:22] VITALS: BMI 22.1
--- NOTE | 2018-07-22 10:32 | PCM.PN.NEU ---
Subjective: Patient seen and examined. No new events over night. Tolerating therapy. 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 It was again reviewed with the patient concerning the risk involved with not having surgery, she stated she understood but was not going to have surgery. - Physical Exam General: Alert, Oriented x3, Cooperative HEENT: Atraumatic, PERRLA, EOMI, Normocephalic Neck: Supple, No JVD, Negative Carotid Bruits Lungs: Clear to auscultation, Normal air movement Cardiovascular: Regular rate, No murmurs Abdomen: Bowel Sounds Present, Soft, Non Tender Extremities: No edema, Capillary Refill Less than 3 Seconds Skin: No rashes, No breakdown Musculoskeletal: No Tenderness to Palpation of Joints or Extremities Neurological: Cranial nerves II-XII grossly intact Psych/Mental Status: Normal Affect, Appropriate, Alert and oriented to time, place, person, mood and affect Vital Signs Temp Pulse Resp BP Pulse Ox 97.5 F L 76 18 136/94 H 99 07/22/18 08:19 07/22/18 08:19 07/22/18 08:19 07/22/18 08:19 07/22/18 08:19 Oxygen Delivery Method Room Air Weight: 55.7 kg Body Mass Index (BMI) 22.1 Finger Stick Blood Glucose 113 Intake and Output for Last 24 Hours 07/20/18 07/21/18 07/22/18 23:59 23:59 23:59 Intake Total 600 / 600 Balance 600 / 600 Active Medications Acetaminophen (Tylenol) 325 mg PO Q4H PRN PRN PRN Reason: PAIN Last Admin: 07/20/18 20:29 Dose: 325 mg Amlodipine Besylate (Norvasc) 10 mg PO DAILY [facility] Last Admin: 07/22/18 08:34 Dose: 10 mg Apixaban (Eliquis) 2.5 mg PO BID [facility] Last Admin: 07/22/18 08:34 Dose: 2.5 mg Aspirin (Aspirin, Baby) 81 mg PO DAILY@0800 [facility] Last Admin: 07/22/18 08:35 Dose: 81 mg Atorvastatin Calcium (Lipitor) 40 mg PO QHS [facility] Last Admin: 07/21/18 22:24 Dose: 40 mg Bisacodyl (Dulcolax) 10 mg RECTAL .PRN X 1 PRN PRN Reason: Constipation Lorazepam (Ativan) 0.5 mg PO QHS PRN PRN PRN Reason: Insomnia Magnesium Hydroxide (Milk Of Magnesia) 30 ml PO .PRN X 1 PRN PRN Reason: Constipation Melatonin (Melatonin) 3 mg PO QHS PRN PRN Reason: INSOMNIA Last Admin: 07/20/18 21:56 Dose: 3 mg Senna/Docusate Sodium (Senokot-S, Mara-Colace) 2 tablet PO BID [facility] Last Admin: 07/22/18 08:35 Dose: 1 tablet Medical Necessity - Tobacco Use Smoking Status: Never smoker Tobacco Use: Non-smoker Assessment/Plan All Active Problems Pneumonia (Resolved) Renal colic on right side (Resolved) Kidney stone on right side (Resolved) Acute CVA (cerebrovascular accident) (Acute) Atrial flutter (Acute) 82 year old Female who was admitted to the rehab unit for rehabilitation. She has a PMH: CVA, chronic atrial fibrillation-patient took herself off of blood thinner, hypertension, a history of carotid stenosis and is a patient of Dr. Pena, she presented to the emergency room with acute onset of left upper extremity weakness, on 07/13/18. She a CT of the brain which was negative for acute process. She was admitted to the PCU for acute CVA with neurology on consult. She was placed on statin, aspirin. She was previously on Eliquis for chronic A-fib which she had taken herself off because she was concerned about the side effects, Cost and ecchymosis. She also has a history of severe carotid stenosis which she states she had previously discussed surgery for with Dr. Pena. She had a carotid ultrasound that did show severe right sided carotid stenosis. A repeat CT brain was negative. She refused an MRI/MRA, and CTA of the head and neck. She was recently started on amlodipine for hypertension and she reports dizziness; tremors and weakness with amlodipine. She even attributes her strokelike symptoms to amlodipine. Plan: - Physical therapy for gait and balance - Occupational Therapy for ADLs - Speech therapy - As needed analgesics - Bowel protocol - Stroke prevention on ASA, Statin and Lovenox, will transition to Coumadin on 07/18, once therapeutic will d/c the ASA, and Lovenox, Patient wishes to try Eliquis instead of Coumadin at this time will start 5mg BID, change dosage to 2.5mg, once medication is started will D/C the ASA. - DVT prophylaxis: SCDs, ASA, Lovenox - Hypertension: Stable with good control, continue Norvasc Keep BP < 130/80 mmHg - Echo cardiogram => pending results - Check LDL and Hba1c - Goal Hba1c <7%
--- NOTE | 2018-07-22 10:40 | PN.NEURO_ITS ---
Subjective: Patient seen and examined. No new events over night. Tolerating therapy. 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 It was again reviewed with the patient concerning the risk involved with not having surgery, she stated she understood but was not going to have surgery. - Physical Exam General: Alert, Oriented x3, Cooperative HEENT: Atraumatic, PERRLA, EOMI, Normocephalic Neck: Supple, No JVD, Negative Carotid Bruits Lungs: Clear to auscultation, Normal air movement Cardiovascular: Regular rate, No murmurs Abdomen: Bowel Sounds Present, Soft, Non Tender Extremities: No edema, Capillary Refill Less than 3 Seconds Skin: No rashes, No breakdown Musculoskeletal: No Tenderness to Palpation of Joints or Extremities Neurological: Cranial nerves II-XII grossly intact Psych/Mental Status: Normal Affect, Appropriate, Alert and oriented to time, place, person, mood and affect Vital Signs Temp Pulse Resp BP Pulse Ox 97.5 F L 76 18 136/94 H 99 07/22/18 08:19 07/22/18 08:19 07/22/18 08:19 07/22/18 08:19 07/22/18 08:19 Oxygen Delivery Method Room Air Weight: 55.7 kg Body Mass Index (BMI) 22.1 Finger Stick Blood Glucose 113 Intake and Output for Last 24 Hours 07/20/18 07/21/18 07/22/18 23:59 23:59 23:59 Intake Total 600 / 600 Balance 600 / 600 Active Medications Acetaminophen (Tylenol) 325 mg PO Q4H PRN PRN PRN Reason: PAIN Last Admin: 07/20/18 20:29 Dose: 325 mg Amlodipine Besylate (Norvasc) 10 mg PO DAILY [facility] Last Admin: 07/22/18 08:34 Dose: 10 mg Apixaban (Eliquis) 2.5 mg PO BID [facility] Last Admin: 07/22/18 08:34 Dose: 2.5 mg Aspirin (Aspirin, Baby) 81 mg PO DAILY@0800 [facility] Last Admin: 07/22/18 08:35 Dose: 81 mg Atorvastatin Calcium (Lipitor) 40 mg PO QHS [facility] Last Admin: 07/21/18 22:24 Dose: 40 mg Bisacodyl (Dulcolax) 10 mg RECTAL .PRN X 1 PRN PRN Reason: Constipation Lorazepam (Ativan) 0.5 mg PO QHS PRN PRN PRN Reason: Insomnia Magnesium Hydroxide (Milk Of Magnesia) 30 ml PO .PRN X 1 PRN PRN Reason: Constipation Melatonin (Melatonin) 3 mg PO QHS PRN PRN Reason: INSOMNIA Last Admin: 07/20/18 21:56 Dose: 3 mg Senna/Docusate Sodium (Senokot-S, Mara-Colace) 2 tablet PO BID [facility] Last Admin: 07/22/18 08:35 Dose: 1 tablet Medical Necessity - Tobacco Use Smoking Status: Never smoker Tobacco Use: Non-smoker Assessment/Plan All Active Problems Pneumonia (Resolved) Renal colic on right side (Resolved) Kidney stone on right side (Resolved) Acute CVA (cerebrovascular accident) (Acute) Atrial flutter (Acute) 82 year old Female who was admitted to the rehab unit for rehabilitation. She has a PMH: CVA, chronic atrial fibrillation-patient took herself off of blood thinner, hypertension, a history of carotid stenosis and is a patient of Dr. Pena, she presented to the emergency room with acute onset of left upper extremity weakness, on 07/13/18. She a CT of the brain which was negative for acute process. She was admitted to the PCU for acute CVA with neurology on consult. She was placed on statin, aspirin. She was previously on Eliquis for chronic A-fib which she had taken herself off because she was concerned about the side effects, Cost and ecchymosis. She also has a history of severe carotid stenosis which she states she had previously discussed surgery for with Dr. Pena. She had a carotid ultrasound that did show severe right sided carotid stenosis. A repeat CT brain was negative. She refused an MRI/MRA, and CTA of the head and neck. She was recently started on amlodipine for hypertension and she reports dizziness; tremors and weakness with amlodipine. She even attributes her strokelike symptoms to amlodipine. Plan: - Physical therapy for gait and balance - Occupational Therapy for ADLs - Speech therapy - As needed analgesics - Bowel protocol - Stroke prevention on ASA, Statin and Lovenox, will transition to Coumadin on 07/18, once therapeutic will d/c the ASA, and Lovenox, Patient wishes to try Eliquis instead of Coumadin at this time will start 5mg BID, change dosage to 2.5mg, once medication is started will D/C the ASA. - DVT prophylaxis: SCDs, ASA, Lovenox - Hypertension: Stable with good control, continue Norvasc Keep BP < 130/80 mmHg - Echo cardiogram => pending results - Check LDL and Hba1c - Goal Hba1c <7%
[2018-07-22 19:02] VITALS: BP 112/68; PULSE 90; RESP 18; TEMP 36.5; O2SAT 96
[2018-07-22] MEDS: Atorvastatin Calcium 40 MG Tablet PO (19:59)
[2018-07-23 07:21] VITALS: BP 113/64; PULSE 79; RESP 18; TEMP 36.7; O2SAT 97
[2018-07-23] MEDS: Aspirin 81 MG TAB.CHEW PO (07:30)
[2018-07-23] MEDS: amLODIPine 10 MG Tablet PO (07:31)
[2018-07-23] MEDS: APIXABAN 2.5 MG TABLET PO ×2 (07:31→20:35)
[2018-07-23 08:52] VITALS: BMI 22.1
--- NOTE | 2018-07-23 18:24 | NURSING ---
up and ambulated around halls with standby assist and cane today several times.
[2018-07-23 19:19] VITALS: BP 110/66; PULSE 80; RESP 16; O2SAT 98
[2018-07-23 20:24] VITALS: TEMP 36.5
[2018-07-23] MEDS: MELATONIN 3 MG TABLET PO (20:35)
[2018-07-23] MEDS: Atorvastatin Calcium 40 MG Tablet PO (20:35)
[2018-07-24 05:00] VITALS: BMI 22.1
[2018-07-24] MEDS: amLODIPine 10 MG Tablet PO (08:08)
[2018-07-24] MEDS: Aspirin 81 MG TAB.CHEW PO (08:08)
[2018-07-24] MEDS: Senna/Docusate Sodium 1 Tablet 2 TABLET PO ×2 (08:08→19:59)
[2018-07-24] MEDS: APIXABAN 2.5 MG TABLET PO ×2 (08:08→19:58)
[2018-07-24 08:17] VITALS: BP 143/86; PULSE 82; RESP 16; TEMP 36.8; O2SAT 96
[2018-07-24 08:20] VITALS: PULSE 82
--- NOTE | 2018-07-24 09:10 | NURSING ---
pt up and ambulated around unit multiple times with cane. pt tolerated well.
[2018-07-24 09:40] VITALS: BMI 22.1
[2018-07-24 19:41] VITALS: BP 114/65; PULSE 83; RESP 16; TEMP 36.4; O2SAT 96
[2018-07-24 19:42] VITALS: BMI 22.1
[2018-07-24] MEDS: Atorvastatin Calcium 40 MG Tablet PO (19:59)
[2018-07-24 20:01] VITALS: PULSE 83; RESP 16; O2SAT 96
--- NOTE | 2018-07-25 02:42 | NURSING ---
REVIEWED AND AGREE WITH SALESPERSON [employer]OW[employer]'S FIM AND HANDOFF CHARTING.
[2018-07-25 07:11] VITALS: BP 121/80; PULSE 80; RESP 20; TEMP 36.6; O2SAT 100
[2018-07-25] MEDS: amLODIPine 10 MG Tablet PO (07:32)
[2018-07-25] MEDS: APIXABAN 2.5 MG TABLET PO ×2 (07:32→20:50)
[2018-07-25] MEDS: Aspirin 81 MG TAB.CHEW PO (07:32)
[2018-07-25] MEDS: Senna/Docusate Sodium 1 Tablet 2 TABLET PO ×2 (07:32→20:50)
--- NOTE | 2018-07-25 10:28 | PN.NEURO_ITS ---
Subjective: Patient seen and examined. No new events over night per patient and Nursing staff. Tolerating therapy. Denies any headaches, blurry vision, or new focal deficits. Tolerating regular diet, no issues with GI/. - Physical Exam General: Alert, Oriented x3, Cooperative HEENT: Atraumatic, PERRLA, EOMI, Normocephalic Neck: Supple, No JVD, Negative Carotid Bruits Lungs: Clear to auscultation, Normal air movement Cardiovascular: Regular rate, No murmurs Abdomen: Bowel Sounds Present, Soft, Non Tender Extremities: No edema, Capillary Refill Less than 3 Seconds Skin: No rashes, No breakdown Musculoskeletal: No Tenderness to Palpation of Joints or Extremities Neurological: Cranial nerves II-XII grossly intact Psych/Mental Status: Normal Affect, Appropriate, Alert and oriented to time, place, person, mood and affect Vital Signs Temp Pulse Resp BP Pulse Ox 97.9 F 80 20 H 121/80 H 100 07/25/18 07:11 07/25/18 07:11 07/25/18 07:11 07/25/18 07:11 07/25/18 07:11 Oxygen Delivery Method Room Air Weight: 55.7 kg Body Mass Index (BMI) 22.1 Finger Stick Blood Glucose 113 Intake and Output for Last 24 Hours 07/23/18 07/24/18 07/25/18 23:59 23:59 23:59 Intake Total 360 / 360 840 / 840 360 / 360 Balance 360 / 360 840 / 840 360 / 360 Active Medications Acetaminophen (Tylenol) 325 mg PO Q4H PRN PRN PRN Reason: PAIN Last Admin: 07/20/18 20:29 Dose: 325 mg Amlodipine Besylate (Norvasc) 10 mg PO DAILY [facility] Last Admin: 07/25/18 07:32 Dose: 10 mg Apixaban (Eliquis) 2.5 mg PO BID [facility] Last Admin: 07/25/18 07:32 Dose: 2.5 mg Aspirin (Aspirin, Baby) 81 mg PO DAILY@0800 [facility] Last Admin: 07/25/18 07:32 Dose: 81 mg Atorvastatin Calcium (Lipitor) 40 mg PO QHS [facility] Last Admin: 07/24/18 19:59 Dose: 40 mg Bisacodyl (Dulcolax) 10 mg RECTAL .PRN X 1 PRN PRN Reason: Constipation Lorazepam (Ativan) 0.5 mg PO QHS PRN PRN PRN Reason: Insomnia Magnesium Hydroxide (Milk Of Magnesia) 30 ml PO .PRN X 1 PRN PRN Reason: Constipation Melatonin (Melatonin) 3 mg PO QHS PRN PRN Reason: INSOMNIA Last Admin: 07/23/18 20:35 Dose: 3 mg Senna/Docusate Sodium (Senokot-S, Mara-Colace) 2 tablet PO BID [facility] Last Admin: 07/25/18 07:32 Dose: 1 tablet Medical Necessity - Tobacco Use Smoking Status: Never smoker Tobacco Use: Non-smoker Assessment/Plan All Active Problems Pneumonia (Resolved) Renal colic on right side (Resolved) Kidney stone on right side (Resolved) Acute CVA (cerebrovascular accident) (Acute) Atrial flutter (Acute) 82 year old Female who was admitted to the rehab unit for rehabilitation. She has a PMH: CVA, chronic atrial fibrillation-patient took herself off of blood thinner, hypertension, a history of carotid stenosis and is a patient of Dr. Pena, she presented to the emergency room with acute onset of left upper extremity weakness, on 07/13/18. She a CT of the brain which was negative for acute process. She was admitted to the PCU for acute CVA with neurology on consult. She was placed on statin, aspirin. She was previously on Eliquis for chronic A-fib which she had taken herself off because she was concerned about the side effects, Cost and ecchymosis. She also has a history of severe carotid stenosis which she states she had previously discussed surgery for with Dr. Pena. She had a carotid ultrasound that did show severe right sided carotid stenosis. A repeat CT brain was negative. She refused an MRI/MRA, and CTA of the head and neck. She was recently started on amlodipine for hypertension and she reports dizziness; tremors and weakness with amlodipine. She even attributes her strokelike symptoms to amlodipine. Plan: - Physical therapy for gait and balance - Occupational Therapy for ADLs - Speech therapy - As needed analgesics - Bowel protocol - Stroke prevention on ASA, Statin and Lovenox, will transition to Coumadin on 07/18, once therapeutic will d/c the ASA, and Lovenox, Patient wishes to try Eliquis instead of Coumadin at this time will start 5mg BID, change dosage to 2.5mg, once medication is started will D/C the ASA. - DVT prophylaxis: SCDs, ASA, Lovenox - Hypertension: Stable with good control, continue Norvasc Keep BP < 130/80 mmHg - Echo cardiogram => pending results - Check LDL and Hba1c - Goal Hba1c <7%
[2018-07-25 15:47] VITALS: BMI 22.1
--- NOTE | 2018-07-25 16:30 | CASEMGMT ---
Social Work Phone call received from pt dgt Amna who lives in [place]. Amna states she plans to arrive in area to be with pt on Wednesday evening. Amna inquiring about pt being discharged at this time. Amna will be staying with the pt for 10 days to assist with transition home. SW informed Amna will speak with team about d/c and call her back tomorrow. MARC Kennedy
[2018-07-25 19:52] VITALS: BP 143/82; PULSE 73; RESP 18; TEMP 36.6; O2SAT 97
--- NOTE | 2018-07-25 20:37 | NURSING ---
pt expressing concerns about her medications. pt states that no one has come to talk to me about these medications. pt states that she has been put on medication and has no reason to be on the medication. pts concerns related to Norvasc for blood pressure. pt states she did not have the medication previously, and wants to know why she is taking the medication when her BP has been good. this nurse went back through previous charting to help pt understand prior blood pressures. pt understands there are occasionally high BP's recorded. pt also expressing concerns about eliquis and affording the medication when she discharges from facility. pt states that long term care social worker and CASTING MACHINE SERVICE OPERATOR are aware of the situation. will pass on in report in am.
[2018-07-25] MEDS: Atorvastatin Calcium 40 MG Tablet PO (20:50)
--- NOTE | 2018-07-25 21:07 | NURSING ---
pt up and ambulated around unit 3 times before hs. tolerated well.
[2018-07-25 21:17] VITALS: BMI 22.1
--- NOTE | 2018-07-26 02:52 | NURSING ---
Reviewed and agree with [employer] documentation and FIMs charting.
[2018-07-26 07:19] VITALS: BP 121/63; PULSE 77; RESP 16; TEMP 36.3; O2SAT 96
[2018-07-26] MEDS: Aspirin 81 MG TAB.CHEW PO (08:22)
[2018-07-26] MEDS: Senna/Docusate Sodium 1 Tablet 2 TABLET PO ×2 (08:22→19:45)
[2018-07-26] MEDS: APIXABAN 2.5 MG TABLET PO ×2 (08:22→19:45)
[2018-07-26] MEDS: amLODIPine 10 MG Tablet PO (08:22)
--- NOTE | 2018-07-26 13:12 | PCM.PN.NEU ---
Subjective: Patient seen and examined. No acute events overnight. She is tolerating therapy, getting more movement in her left hand, still unable to lift arm without assistance from her other arm. Tolerating regular diet. No issues with GI/. - Physical Exam General: Alert, Oriented x3, Cooperative HEENT: Atraumatic, PERRLA, EOMI, Normocephalic Neck: Supple, No JVD, Negative Carotid Bruits Lungs: Clear to auscultation, Normal air movement Cardiovascular: Regular rate, No murmurs Abdomen: Bowel Sounds Present, Soft, Non Tender Extremities: No edema, Capillary Refill Less than 3 Seconds Skin: No rashes, No breakdown Musculoskeletal: No Tenderness to Palpation of Joints or Extremities Neurological: Cranial nerves II-XII grossly intact Psych/Mental Status: Normal Affect, Appropriate, Alert and oriented to time, place, person, mood and affect Vital Signs Temp Pulse Resp BP Pulse Ox 97.4 F L 77 16 121/63 H 96 07/26/18 07:19 07/26/18 07:19 07/26/18 07:19 07/26/18 07:19 07/26/18 07:19 Oxygen Delivery Method Room Air Weight: 55.7 kg Body Mass Index (BMI) 22.1 Finger Stick Blood Glucose 113 Intake and Output for Last 24 Hours 07/24/18 07/25/18 07/26/18 23:59 23:59 23:59 Intake Total 840 / 840 480 / 480 200 / 200 Balance 840 / 840 480 / 480 200 / 200 Active Medications Acetaminophen (Tylenol) 325 mg PO Q4H PRN PRN PRN Reason: PAIN Last Admin: 07/20/18 20:29 Dose: 325 mg Amlodipine Besylate (Norvasc) 10 mg PO DAILY [facility] Last Admin: 07/26/18 08:22 Dose: 10 mg Apixaban (Eliquis) 2.5 mg PO BID [facility] Last Admin: 07/26/18 08:22 Dose: 2.5 mg Aspirin (Aspirin, Baby) 81 mg PO DAILY@0800 [facility] Last Admin: 07/26/18 08:22 Dose: 81 mg Atorvastatin Calcium (Lipitor) 40 mg PO QHS [facility] Last Admin: 07/25/18 20:50 Dose: 40 mg Bisacodyl (Dulcolax) 10 mg RECTAL .PRN X 1 PRN PRN Reason: Constipation Lorazepam (Ativan) 0.5 mg PO QHS PRN PRN PRN Reason: Insomnia Magnesium Hydroxide (Milk Of Magnesia) 30 ml PO .PRN X 1 PRN PRN Reason: Constipation Senna/Docusate Sodium (Senokot-S, Mara-Colace) 2 tablet PO BID [facility] Last Admin: 07/26/18 08:22 Dose: 1 tablet Medical Necessity - Tobacco Use Smoking Status: Never smoker Tobacco Use: Non-smoker Assessment/Plan All Active Problems Pneumonia (Resolved) Renal colic on right side (Resolved) Kidney stone on right side (Resolved) Acute CVA (cerebrovascular accident) (Acute) Atrial flutter (Acute) 82 year old Female who was admitted to the rehab unit for rehabilitation. She has a PMH: CVA, chronic atrial fibrillation-patient took herself off of blood thinner, hypertension, a history of carotid stenosis and is a patient of Dr. Pena, she presented to the emergency room with acute onset of left upper extremity weakness, on 07/13/18. She a CT of the brain which was negative for acute process. She was admitted to the PCU for acute CVA with neurology on consult. She was placed on statin, aspirin. She was previously on Eliquis for chronic A-fib which she had taken herself off because she was concerned about the side effects, Cost and ecchymosis. She also has a history of severe carotid stenosis which she states she had previously discussed surgery for with Dr. Pena. She had a carotid ultrasound that did show severe right sided carotid stenosis. A repeat CT brain was negative. She refused an MRI/MRA, and CTA of the head and neck. She was recently started on amlodipine for hypertension and she reports dizziness; tremors and weakness with amlodipine. She even attributes her strokelike symptoms to amlodipine. Plan: - Physical therapy for gait and balance - Occupational Therapy for ADLs - Speech therapy - As needed analgesics - Bowel protocol - Stroke prevention on ASA, Statin and Lovenox, will transition to Coumadin on 07/18, once therapeutic will d/c the ASA, and Lovenox, Patient wishes to try Eliquis instead of Coumadin at this time will start 5mg BID, change dosage to 2.5mg, once medication is started will D/C the ASA. - DVT prophylaxis: SCDs, ASA, Lovenox - Hypertension: Stable with good control, continue Norvasc Keep BP < 130/80 mmHg - Echo cardiogram => pending results - Check LDL and Hba1c - Goal Hba1c <7%
--- NOTE | 2018-07-26 14:14 | CASEMGMT ---
Social Work SW spoke with therapy and nursing and discussed d/c plan. Team is agreeable to d/c home on with dgt. Therapy recommending home health PT. No DME needed at this time. SW met with pt in room and discussed d/c plan. Pt would like to d/c on after team meeting and is planning on dgt to assist her at home for several days. SW spoke to pt about home PT and pt is not agreeable to this as she does not want strangers in her home. Pt also expressing concern about going home on Eliquis due to cost as pt has no prescription insurance. ISABELLA spoke with Angie RN about pt concerns about Eliquis. 30 day free card given to Angie to give to pt if pt is d/c on this medication. After 30 days pt will be responsible for payment. Phone call to pt dgt Amna to update on d/c plan. Message left requesting return call. MARC Kennedy
[2018-07-26 14:19] VITALS: BMI 22.1
[2018-07-26 19:12] VITALS: BP 112/69; PULSE 83; RESP 16; TEMP 36.5; O2SAT 100
[2018-07-26] MEDS: Atorvastatin Calcium 40 MG Tablet PO (19:45)
--- NOTE | 2018-07-26 21:00 | NURSING ---
pt ambulated around unit at this time- 2 times around. pt tolerated well.
[2018-07-26 22:32] VITALS: BMI 22.1
--- NOTE | 2018-07-27 02:02 | NURSING ---
Reviewed and agree with TIPPING MACHINE OPERATOR AUTOMATIC documentation and FIMs charting.
[2018-07-27 07:16] VITALS: BP 135/76; PULSE 90; RESP 17; TEMP 36.4; O2SAT 98
[2018-07-27] MEDS: APIXABAN 2.5 MG TABLET PO ×2 (08:22→20:43)
[2018-07-27] MEDS: Aspirin 81 MG TAB.CHEW PO (08:22)
[2018-07-27] MEDS: Senna/Docusate Sodium 1 Tablet 2 TABLET PO ×2 (08:22→20:43)
[2018-07-27] MEDS: amLODIPine 10 MG Tablet PO (08:22)
--- NOTE | 2018-07-27 10:30 | PCM.PN.NEU ---
Subjective: Patient seen and examined. No new complaints. Tolerating therapy. The plan is for discharge on after team meeting per patient request. No issues with GI/. - Physical Exam General: Alert, Oriented x3, Cooperative HEENT: Atraumatic, PERRLA, EOMI, Normocephalic Neck: Supple, No JVD, Negative Carotid Bruits Lungs: Clear to auscultation, Normal air movement Cardiovascular: Regular rate, No murmurs Abdomen: Bowel Sounds Present, Soft, Non Tender Extremities: No edema, Capillary Refill Less than 3 Seconds Skin: No rashes, No breakdown Musculoskeletal: No Tenderness to Palpation of Joints or Extremities Neurological: Cranial nerves II-XII grossly intact Psych/Mental Status: Normal Affect, Appropriate, Alert and oriented to time, place, person, mood and affect Vital Signs Temp Pulse Resp BP Pulse Ox 97.6 F L 90 17 135/76 H 98 07/27/18 07:16 07/27/18 07:16 07/27/18 07:16 07/27/18 07:16 07/27/18 07:16 Oxygen Delivery Method Room Air Weight: 56.8 kg Body Mass Index (BMI) 22.1 Finger Stick Blood Glucose 113 Intake and Output for Last 24 Hours 07/25/18 07/26/18 07/27/18 23:59 23:59 23:59 Intake Total 480 / 480 200 / 200 240 / 240 Balance 480 / 480 200 / 200 240 / 240 Active Medications Acetaminophen (Tylenol) 325 mg PO Q4H PRN PRN PRN Reason: PAIN Last Admin: 07/20/18 20:29 Dose: 325 mg Amlodipine Besylate (Norvasc) 10 mg PO DAILY [facility] Last Admin: 07/27/18 08:22 Dose: 10 mg Apixaban (Eliquis) 2.5 mg PO BID [facility] Last Admin: 07/27/18 08:22 Dose: 2.5 mg Aspirin (Aspirin, Baby) 81 mg PO DAILY@0800 [facility] Last Admin: 07/27/18 08:22 Dose: 81 mg Atorvastatin Calcium (Lipitor) 40 mg PO QHS [facility] Last Admin: 07/26/18 19:45 Dose: 40 mg Bisacodyl (Dulcolax) 10 mg RECTAL .PRN X 1 PRN PRN Reason: Constipation Lorazepam (Ativan) 0.5 mg PO QHS PRN PRN PRN Reason: Insomnia Magnesium Hydroxide (Milk Of Magnesia) 30 ml PO .PRN X 1 PRN PRN Reason: Constipation Senna/Docusate Sodium (Senokot-S, Mara-Colace) 2 tablet PO BID [facility] Last Admin: 07/27/18 08:22 Dose: 1 tablet Medical Necessity - Tobacco Use Smoking Status: Never smoker Tobacco Use: Non-smoker Assessment/Plan All Active Problems Pneumonia (Resolved) Renal colic on right side (Resolved) Kidney stone on right side (Resolved) Acute CVA (cerebrovascular accident) (Acute) Atrial flutter (Acute) 82 year old Female who was admitted to the rehab unit for rehabilitation. She has a PMH: CVA, chronic atrial fibrillation-patient took herself off of blood thinner, hypertension, a history of carotid stenosis and is a patient of Dr. Pena, she presented to the emergency room with acute onset of left upper extremity weakness, on 07/13/18. She a CT of the brain which was negative for acute process. She was admitted to the PCU for acute CVA with neurology on consult. She was placed on statin, aspirin. She was previously on Eliquis for chronic A-fib which she had taken herself off because she was concerned about the side effects, Cost and ecchymosis. She also has a history of severe carotid stenosis which she states she had previously discussed surgery for with Dr. Pena. She had a carotid ultrasound that did show severe right sided carotid stenosis. A repeat CT brain was negative. She refused an MRI/MRA, and CTA of the head and neck. She was recently started on amlodipine for hypertension and she reports dizziness; tremors and weakness with amlodipine. She even attributes her strokelike symptoms to amlodipine. Plan: - Physical therapy for gait and balance - Occupational Therapy for ADLs - Speech therapy - As needed analgesics - Bowel protocol - Stroke prevention on ASA, Statin and Lovenox, will transition to Coumadin on 07/18, once therapeutic will d/c the ASA, and Lovenox, Patient wishes to try Eliquis instead of Coumadin at this time will start 5mg BID, change dosage to 2.5mg, once medication is started will D/C the ASA. - DVT prophylaxis: SCDs, ASA, Lovenox - Hypertension: Stable with good control, continue Norvasc Keep BP < 130/80 mmHg - Echo cardiogram => pending results - Check LDL and Hba1c - Goal Hba1c <7% - Plan is for discharge after team meeting on per patient request.
--- NOTE | 2018-07-27 10:33 | PN.NEURO_ITS ---
Subjective: Patient seen and examined. No new complaints. Tolerating therapy. The plan is for discharge on after team meeting per patient request. No issues with GI/. - Physical Exam General: Alert, Oriented x3, Cooperative HEENT: Atraumatic, PERRLA, EOMI, Normocephalic Neck: Supple, No JVD, Negative Carotid Bruits Lungs: Clear to auscultation, Normal air movement Cardiovascular: Regular rate, No murmurs Abdomen: Bowel Sounds Present, Soft, Non Tender Extremities: No edema, Capillary Refill Less than 3 Seconds Skin: No rashes, No breakdown Musculoskeletal: No Tenderness to Palpation of Joints or Extremities Neurological: Cranial nerves II-XII grossly intact Psych/Mental Status: Normal Affect, Appropriate, Alert and oriented to time, place, person, mood and affect Vital Signs Temp Pulse Resp BP Pulse Ox 97.6 F L 90 17 135/76 H 98 07/27/18 07:16 07/27/18 07:16 07/27/18 07:16 07/27/18 07:16 07/27/18 07:16 Oxygen Delivery Method Room Air Weight: 56.8 kg Body Mass Index (BMI) 22.1 Finger Stick Blood Glucose 113 Intake and Output for Last 24 Hours 07/25/18 07/26/18 07/27/18 23:59 23:59 23:59 Intake Total 480 / 480 200 / 200 240 / 240 Balance 480 / 480 200 / 200 240 / 240 Active Medications Acetaminophen (Tylenol) 325 mg PO Q4H PRN PRN PRN Reason: PAIN Last Admin: 07/20/18 20:29 Dose: 325 mg Amlodipine Besylate (Norvasc) 10 mg PO DAILY [facility] Last Admin: 07/27/18 08:22 Dose: 10 mg Apixaban (Eliquis) 2.5 mg PO BID [facility] Last Admin: 07/27/18 08:22 Dose: 2.5 mg Aspirin (Aspirin, Baby) 81 mg PO DAILY@0800 [facility] Last Admin: 07/27/18 08:22 Dose: 81 mg Atorvastatin Calcium (Lipitor) 40 mg PO QHS [facility] Last Admin: 07/26/18 19:45 Dose: 40 mg Bisacodyl (Dulcolax) 10 mg RECTAL .PRN X 1 PRN PRN Reason: Constipation Lorazepam (Ativan) 0.5 mg PO QHS PRN PRN PRN Reason: Insomnia Magnesium Hydroxide (Milk Of Magnesia) 30 ml PO .PRN X 1 PRN PRN Reason: Constipation Senna/Docusate Sodium (Senokot-S, Mara-Colace) 2 tablet PO BID [facility] Last Admin: 07/27/18 08:22 Dose: 1 tablet Medical Necessity - Tobacco Use Smoking Status: Never smoker Tobacco Use: Non-smoker Assessment/Plan All Active Problems Pneumonia (Resolved) Renal colic on right side (Resolved) Kidney stone on right side (Resolved) Acute CVA (cerebrovascular accident) (Acute) Atrial flutter (Acute) 82 year old Female who was admitted to the rehab unit for rehabilitation. She has a PMH: CVA, chronic atrial fibrillation-patient took herself off of blood thinner, hypertension, a history of carotid stenosis and is a patient of Dr. Pena, she presented to the emergency room with acute onset of left upper extremity weakness, on 07/13/18. She a CT of the brain which was negative for acute process. She was admitted to the PCU for acute CVA with neurology on consult. She was placed on statin, aspirin. She was previously on Eliquis for chronic A-fib which she had taken herself off because she was concerned about the side effects, Cost and ecchymosis. She also has a history of severe carotid stenosis which she states she had previously discussed surgery for with Dr. Pena. She had a carotid ultrasound that did show severe right sided carotid stenosis. A repeat CT brain was negative. She refused an MRI/MRA, and CTA of the head and neck. She was recently started on amlodipine for hypertension and she reports dizziness; tremors and weakness with amlodipine. She even attributes her strokelike symptoms to amlodipine. Plan: - Physical therapy for gait and balance - Occupational Therapy for ADLs - Speech therapy - As needed analgesics - Bowel protocol - Stroke prevention on ASA, Statin and Lovenox, will transition to Coumadin on 07/18, once therapeutic will d/c the ASA, and Lovenox, Patient wishes to try Eliquis instead of Coumadin at this time will start 5mg BID, change dosage to 2.5mg, once medication is started will D/C the ASA. - DVT prophylaxis: SCDs, ASA, Lovenox - Hypertension: Stable with good control, continue Norvasc Keep BP < 130/80 mmHg - Echo cardiogram => pending results - Check LDL and Hba1c - Goal Hba1c <7% - Plan is for discharge after team meeting on per patient request.
[2018-07-27 14:57] VITALS: BMI 22.1
[2018-07-27] MEDS: Atorvastatin Calcium 40 MG Tablet PO (20:43)
[2018-07-27 21:55] VITALS: BP 129/79; PULSE 84; RESP 18; TEMP 36.5; O2SAT 95
--- NOTE | 2018-07-27 22:00 | NURSING ---
CLARIFICATION FOR FIMS OF 07/27/18 AT 2200: UPPER BODY DRESSING FIM 7, LOWER BODY DRESSING FIM 7, TOILETING FIM 7, BED/CHAIR/WHEELCHAIR FIM 7, TOILET TRANSFER FIM 7.
[2018-07-27] MEDS: Acetaminophen 325 MG Tablet PO (22:45)
--- NOTE | 2018-07-27 22:49 | NURSING ---
pt requested tylenol because she is upset and has anxiety and is hoping it will help her sleep
[2018-07-27] MEDS: LORazepam 0.5 MG Tablet PO (22:54)
[2018-07-28] MEDS: APIXABAN 2.5 MG TABLET PO (08:25)
[2018-07-28] MEDS: amLODIPine 10 MG Tablet PO (08:25)
[2018-07-28] MEDS: Aspirin 81 MG TAB.CHEW PO (08:25)
[2018-07-28] MEDS: Senna/Docusate Sodium 1 Tablet 2 TABLET PO (08:26)
[2018-07-28 08:35] VITALS: BP 117/76; PULSE 92; RESP 20; TEMP 36.4; O2SAT 99
--- NOTE | 2018-07-28 10:41 | DCINST_ITS ---
- Discharge Diagnoses Reason(s) for Visit for Discharge Instructions: CVA You will use the following diet at home:: Regular Your food should be the consistency of: Regular Your liquids should be the consistency of: Regular/Thin Discharge Activity: May Not Drive, May Shower, May Take a Tub Bath Weight Bearing Status: Weight bearing as tolerated Call your doctor if you observe: Fever of 101 or Higher, Coldness, Increased Pain, Numbness or Tingling, Change in Color, Inability to urinate, Inability to have a bowel movement, Using more than one pad per hour, Shortness of breath, Dizziness, Fainting spells, Swelling in the ankles, Chest pain, Prolonged hiccoughing, Increased palpitations (irregular heartbeat), Calf discomfort, Uncontrolled pain Allergies/Adverse Reactions: Allergies adhesive Adverse Reaction (Verified 07/13/18 18:56) Rash Medications to take at Discharge Acetaminophen [Tylenol Tablet] 325 mg PO Q4H PRN PRN tablet 07/14/18 Amlodipine [Norvasc] 10 mg PO DAILY #90 tab 07/27/18 Apixaban [Eliquis] 2.5 mg PO BID #60 tab 07/27/18 Atorvastatin Calcium [Lipitor] 40 mg PO QHS #90 tab 07/27/18 The following prescriptions were given: Amlodipine [Norvasc] 10 mg PO DAILY #90 tab Atorvastatin Calcium [Lipitor] 40 mg PO QHS #90 tab Apixaban [Eliquis] 2.5 mg PO BID #60 tab Primary Care Physician: Larry Cooper MD [Primary Care Provider] - Test Results: Test results from this visit will be discussed in further detail at your follow- up appointment, if applicable. Please Follow Up With: Larry Cooper MD Please Follow Up With: Maria L Chavez NP-C Proposed Discharge Date: 07/28/18
--- NOTE | 2018-07-28 10:45 | DS.PCM_ITS ---
Rehab Discharge Summary DATE OF ADMISSION: 07/14/18 DATE OF DISCHARGE: 07/28/18 - Rehab Diagnosis CVA Discharge Diet: No Restrictions Discharge Activity: May Not Drive, May Shower, May Take a Tub Bath Weight Bearing Status: Weight bearing as tolerated Call your doctor if you observe: Fever of 101 or Higher, Coldness, Increased Pain, Numbness or Tingling, Change in Color, Inability to urinate, Inability to have a bowel movement, Using more than one pad per hour, Shortness of breath, Dizziness, Fainting spells, Swelling in the ankles, Chest pain, Prolonged hiccoughing, Increased palpitations (irregular heartbeat), Calf discomfort, Uncontrolled pain Home Medications: Medications to take at Discharge Acetaminophen [Tylenol Tablet] 325 mg PO Q4H PRN PRN tablet 07/14/18 Amlodipine [Norvasc] 10 mg PO DAILY #90 tab 07/27/18 Apixaban [Eliquis] 2.5 mg PO BID #60 tab 07/27/18 Atorvastatin Calcium [Lipitor] 40 mg PO QHS #90 tab 07/27/18 Following Prescrptions Were Given to Patient: Amlodipine [Norvasc] 10 mg PO DAILY #90 tab Atorvastatin Calcium [Lipitor] 40 mg PO QHS #90 tab Apixaban [Eliquis] 2.5 mg PO BID #60 tab Primary Care Physician: Larry Cooper MD [Primary Care Provider] - Please Follow Up With: Larry Cooper MD Please Follow Up With: Maria L Chavez NP-C Disposition: Home - with home exercises from both Physical therapy and Occupational therapy Minutes spent on discharge:: 40 Patient Condition:: Good Rehab Course The patient is a 82 year old Female who was admitted to the rehab unit for rehabilitation. She has a PMH: CVA, chronic atrial fibrillation-patient took herself off of blood thinner, hypertension, a history of carotid stenosis and is a patient of Dr. Pena, she presented to the emergency room with acute onset of left upper extremity weakness, on 07/13/18. She a CT of the brain which was negative for acute process. She was admitted to the PCU for acute CVA with neurology on consult. She was placed on statin, aspirin. She was previously on Eliquis for chronic A-fib which she had taken herself off because she was concerned about the side effects, Cost and ecchymosis. She also has a history of severe carotid stenosis which she states she had previously discussed surgery for with Dr. Pena. She had a carotid ultrasound that did show severe right sided carotid stenosis. A repeat CT brain was negative. She refused an MRI/MRA, and CTA of the head and neck. She was recently started on amlodipine for hypertension and she reports dizziness; tremors and weakness with amlodipine. She even attributes her strokelike symptoms to amlodipine. She was admitted about a week ago for pneumonia and a kidney stone. She had a successful lithotripsy with passing of stones. And she has completed her antibiotics for pneumonia. She lives alone, was previously completely functionally independent and is admitted to the rehab unit in order to restore her previous level of functional independence. She takes a baby aspirin every day. She took her baby aspirin on the day of admission. per admit h&p:The patient is a 82 year old F with a significant history of sarcoidosis; A. fib, hypertension and previous stroke who presents with strokelike symptoms that started a few hours before her admission. Reportedly on the day of admission patient fell at about 12 noon; and about 5 PM. Each time she found it difficult to get up but she eventually got up. She attributes her falling to her legs giving up. She had another fall after 5: 00pm. With this last fall, she was in a chair and the whole chair and herself rolled over. A neighbor checked on her and found that patient was having left-sided weakness. Her course during her stay on Rehab: Week of 07/14 to 07/21 - With Physical therapy, She is stand by assist for transfers, getting in and out of bed and coming to a stand from sitting. She is contact guard for walking with a straight cane, she went off the unit and walked on different surfaces in the community, up and down a ramp, on the grass and up and down curbs using a straight cane. With Occupational therapy, she is stand by assist for grooming and bathing. she is minimal assist for upper body dressing 2/2 decreased movement in her left arm. Therapy feels she is making good progress. With Nursing, her blood pressure is slight elevated today, but usually it is stable. She has good compliance with medication. Only issue is with sleeping, she is not sleeping during the night, will start her on Melatonin at bed time. Week of 07/22 to 07/28 - With Physical therapy, she is able to get in and out of bed with out any assistance, transferring from a sitting to a standing position without assistance. She is able to walk greater than 350 feet with out a device. She is able to go up and down a flight of stairs with out difficulty. With Occupational therapy, she is supervision for bathing, dressing , grooming, and toileting. She does have some difficulty with pants if there is a zipper or a button, she does well with pants that have elastic at the waist. They have worked with her on cooking and laundry and she is able to do both task without any difficulty. Neurology advise no driving until she is seen by our office for her followup appointment. Meaningful Use Info Meaningful Use Diagnoses (Choose all that apply): Ischemic CVA - CVA Therapy Assessed for PT,OT and/or ST?: Yes - Ischemic Stroke Antithrombotic order at d/c?: Yes Dx of Atrial fib/flutter?: Yes Anticoagulant at discharge?: Yes Statins at discharge?: Yes Primary Dx Acute Ischemic CVA?: Yes IV tPA ordered during stay?: No Reason IV t-PA not ordered: Treatment Refused by Pt
[2018-07-28 11:00] VITALS: BMI 22.1
--- NOTE | 2018-07-28 11:05 | CASEMGMT ---
Social Work Team meeting held today with pt, dgt and granddgt present. Pt plans to d/c home today. She has participated well with therapy and is independent with care needs and ambulation at this time. Pt plans to d/c home today where she lives alone. Pt dgt is here from out of state and will be staying with pt for next 10 days to assist pt with transition home. Pt does not want further therapy at this time but will follow home exercise plan. Dgt to transport home today. Pt does not require DME at this time. Per pt request, phone call to [facility] pharmacy and cost of meds obtained. Information relayed to pt. No further D/C needs. Plan: home with daughter to assist as needed initially. No further services MARC Kennedy
[2018-07-28 11:30] VITALS: BP 117/76; PULSE 92; RESP 20; TEMP 36.4; O2SAT 99
--- NOTE | 2018-07-28 11:30 | NURSING ---
Discharge instructions provided to family and to patient and verbalized understanding.
== END 2018-07-28 11:30 | disposition home or self-care (01) | DRG 57 ==
PROVIDERS: Admitting Provider Psychiatry & Neurology Neurology; Family Provider Family Medicine; PCP Family Medicine; Visit Provider Psychiatry & Neurology Neurology
DX: I69.354 Hemiplegia and hemiparesis following cerebral infarction affecting left non-dominant side (principal); I48.2 Chronic atrial fibrillation; I10 Essential (primary) hypertension; Z91.14 Patient's other noncompliance with medication regimen
CPT/HCPCS: 36415; 80048; 85027; 85610; 92507; 97110; 97112; 97116; 97162; 97166; 97530; 97535; 97802

== ENCOUNTER 2018-09-05 08:31 | Outpatient (RCR) | payer MEDICARE, BC, SELFPAY ==
[2018-09-02 09:52] LABS: International Normalized Ratio 1.9; Prothrombin Time (Protime)PT. 21.4 SECONDS (11.7-14.9)
[2018-09-05 09:15] LABS: Prothrombin Time (Protime)PT. 31.7 SECONDS (11.7-14.9)
== END 2018-09-05 10:00 | disposition home or self-care (01) ==
LOC: LAB 08:31
PROVIDERS: Family Provider Family Medicine; PCP Family Medicine; Referring Provider Nurse Practitioner Acute Care; Visit Provider Nurse Practitioner Acute Care
DX: I48.91 Unspecified atrial fibrillation (principal)
CPT/HCPCS: 36415; 85610

== ENCOUNTER 2018-09-16 08:44 | Outpatient (RCR) | payer MEDICARE, BC, SELFPAY ==
[2018-09-09 11:56] LABS: International Normalized Ratio 2.8; Prothrombin Time (Protime)PT. 29.4 SECONDS (11.7-14.9)
[2018-09-16 10:12] LABS: International Normalized Ratio 2.9; Prothrombin Time (Protime)PT. 30.8 SECONDS (11.7-14.9)
== END 2018-10-07 09:42 | disposition home or self-care (01) ==
LOC: LAB 08:44
PROVIDERS: Family Provider Family Medicine; PCP Family Medicine; Referring Provider Nurse Practitioner Acute Care; Visit Provider Nurse Practitioner Acute Care
DX: I48.91 Unspecified atrial fibrillation (principal)
CPT/HCPCS: 36415; 85610